=== PATIENT | male | born 1955 | race Caucasian/White ===

== ENCOUNTER 2023-12-25 16:34 | Inpatient (IN) | payer OTHER, SELFPAY ==
[2023-12-25] VITALS (7 sets, daily range): BP systolic 104–143; BP diastolic 63–78; PULSE 74–87; TEMP 36.6–36.8; O2SAT 96–100; BMI 51.4; BMI 52.8
--- NOTE | 2023-12-25 16:54 | ED.GENADUL1 ---
HPI HPI - General Adult General Chief complaint: Skin/Abscess/Foreign Body Stated complaint: LOWER EXTREMITY INJURY/PAIN Time Seen by Provider: 12/25/23 16:38 Source: patient Mode of arrival: Wheelchair Limitations: no limitations History of Present Illness HPI narrative: 68-year-old male presents for redness and swelling to his right lower leg. It goes from the knee to the ankle. He saw his doctor and over a week ago he had an ultrasound that did not show DVT. 2 days ago he was put on Xarelto and doxycycline by his family doctor but the redness continues and it is warm to touch and he is worried about an infection and it seems to be getting worse. He has not had a known fever. His highest temperature at home was 99 degrees. Related Data Home Medications ?Medication ?Instructions ?Recorded ?Confirmed aspirin 81 mg capsule 81 mg PO DAILY 12/25/23 12/25/23 atorvastatin 40 mg tablet (Lipitor) 40 mg PO DAILY 12/25/23 12/25/23 celecoxib 200 mg capsule (Celebrex) 200 mg PO DAILY 12/25/23 12/25/23 cholecalciferol (vitamin D3) 1,250 1,250 mcg PO QWEEK 12/25/23 12/25/23 mcg (50,000 unit) capsule doxycycline monohydrate 100 mg 100 mg PO DAILY 12/25/23 12/25/23 capsule metformin 500 mg tablet 500 mg PO BID 12/25/23 12/25/23 rifaximin 550 mg tablet (Xifaxan) 550 mg PO BID 12/25/23 12/25/23 rivaroxaban 20 mg tablet (Xarelto) 20 mg PO DAILY 12/25/23 12/25/23 sacubitril 24 mg-valsartan 26 mg 1 tab PO BID 12/25/23 12/25/23 tablet (Entresto) vericiguat 2.5 mg tablet (Verquvo) 2.5 mg PO DAILY 12/25/23 12/25/23 Allergies Allergy/AdvReac Type Severity Reaction Status Date / Time No Known Drug Allergies Allergy Verified 12/25/23 16:43 Opioid HPI Opioid Management Most Recent Opioid Data: Last Pain Scale 7 12/25/23 17:20 Last ED Pain Assessment 12/25/23 17:04 Last MAR Pain Assessment 12/25/23 17:20 Review of Systems ROS Narrative A ten point review of systems is negative except as noted above. Exam Narrative Exam Narrative: Nurses note and vital signs reviewed and patient is not hypoxic. General: The patient appears well and in no apparent distress. Patient is resting comfortably on cart. Skin: Warm, dry, no pallor noted. There is no rash noted. Head: Normocephalic, atraumatic Eye: Normal conjunctiva, no drainage Ears, Nose, Mouth, and Throat: oral mucosa is moist. Nares patent. Cardiovascular: Regular Rate and Rhythm Respiratory: Patient is in no distress, no accessory muscle use, lungs are clear to auscultation, no wheezing, rales or rhonchi Back: non-tender GI: Soft and nontender Musculoskeletal: He has significant erythema and swelling of the right lower leg from the knee down to the ankle. Neurological: A&O, normal speech Psychiatric: Cooperative Constitutional Vital Signs, click to edit/add: Last Vital Signs Temp 98.2 F 12/25/23 16:38 Pulse 85 12/25/23 16:38 Resp 18 12/25/23 16:38 BP 132/78 12/25/23 16:38 Pulse Ox 100 12/25/23 16:38 O2 Del Method Room Air 12/25/23 16:38 Course Vital Signs Vital signs: Vital Signs Temperature 98.2 F 12/25/23 16:38 Pulse Rate 85 12/25/23 16:38 Respiratory Rate 18 12/25/23 16:38 Blood Pressure 132/78 12/25/23 16:38 Pulse Oximetry 100 12/25/23 16:38 Oxygen Delivery Method Room Air 12/25/23 16:38 Temperature 98.2 F 12/25/23 16:38 Pulse Rate 85 12/25/23 16:38 Respiratory Rate 12/25/23 16:38 Blood Pressure 132/78 12/25/23 16:38 Pulse Oximetry 100 12/25/23 16:38 Oxygen Delivery Method Room Air 12/25/23 16:38 Medical Decision Making MDM Narrative Medical decision making narrative: My clinical impression is that he has cellulitis. He had a recent ultrasound of his leg and is already on Xarelto. Cultures were obtained and he was given IV vancomycin and is being admitted. Findings are discussed with the patient and his . Differential Diagnosis Differential Diagnosis: Cellulitis, DVT Lab Data Lab results reviewed: Yes I reviewed the patient's lab results Labs: Lab Results 12/25/23 Range/Units 16:53 WBC 7.9 (4.0-11.0) 10^3/uL RBC 4.31 L (4.70-6.10) 10^6/uL Hgb 14.8 (14.0-18.0) g/dL Hct 43.4 (42.0-54.0) % MCV 100.7 H (80.0-94.0) fL MCH 34.3 H (25.9-34.0) pg MCHC 34.1 (29.9-35.2) g/dL RDW 14.8 (11.0-15.0) % Plt Count 150 (150-450) 10^3/uL MPV 12.6 (9.5-13.5) fL Neut % (Auto) 62.1 (43.0-75.0) % Lymph % (Auto) 15.1 L (20.5-60.0) % [place] % (Auto) 17.9 H (1.7-12.0) % Eos % (Auto) 1.6 (0.9-7.0) % Baso % (Auto) 0.9 (0.2-2.0) % Neut # (Auto) 4.9 (1.4-6.5) 10^3/uL Lymph # (Auto) 1.2 (1.2-3.8) 10^3/uL [place] # (Auto) 1.4 H (0.3-0.8) 10^3/uL Eos # (Auto) 0.1 (0.0-0.7) 10^3/uL Baso # (Auto) 0.1 (0.0-0.1) 10^3/uL Abs Immat Gran (auto) 0.19 H (0.00-0.03) 10^3/uL Imm/Tot Granulo (auto) 2.4 H (0.0-0.5) % Sodium 135 L (136-145) mmol/L Potassium 3.9 (3.5-5.1) mmol/L Chloride 99 (98-107) mmol/L Carbon Dioxide 25.6 (21.0-32.0) mmol/L Anion Gap 14.3 BUN 33.0 H (7.0-18.0) mg/dL Creatinine 1.80 H (0.70-1.30) mg/dL Est GFR ( Amer) 45 L (>=60) Est GFR (Non-Af Amer) 37 L (>=60) BUN/Creatinine Ratio 18.3 Glucose 88 (74-106) mg/dL Lactate 3.1 H* (0.4-2.0) mmol/L Calcium 8.7 (8.5-10.1) mg/dL Discharge Plan Discharge Chief Complaint: Skin/Abscess/Foreign Body Clinical Impression: Cellulitis Patient Disposition: Admitted As Inpatient Time of Disposition Decision: 17:27 Condition: Good
[2023-12-25 17:01] LABS: Basophils Absolute Auto 0.1 10^3/uL (0.0-0.1); Basophils Percent Auto 0.9 % (0.2-2.0); Eosinophils Absolute Auto 0.1 10^3/uL (0.0-0.7); Eosinophils Percent Auto 1.6 % (0.9-7.0); Hematocrit 43.4 % (42.0-54.0); Hemoglobin 14.8 g/dL (14.0-18.0); Immature Granulocytes Abs Auto 0.19 10^3/uL (0.00-0.03); Immature Granulocytes Pct Auto 2.4 % (0.0-0.5); Lymphocytes Absolute Auto 1.2 10^3/uL (1.2-3.8); Lymphocytes Percent Auto 15.1 % (20.5-60.0); Mean Corpuscular HGB Conc 34.1 g/dL (29.9-35.2); Mean Corpuscular Hemoglobin 34.3 pg (25.9-34.0); Mean Corpuscular Volume 100.7 fL (80.0-94.0); Mean Platelet Volume 12.6 fL (9.5-13.5); Monocytes Absolute Auto 1.4 10^3/uL (0.3-0.8); Monocytes Percent Auto 17.9 % (1.7-12.0); Neutrophils Absolute Auto 4.9 10^3/uL (1.4-6.5); Neutrophils Percent Auto 62.1 % (43.0-75.0); Platelet Count 150 10^3/uL (150-450); Red Blood Count 4.31 10^6/uL (4.70-6.10); Red Cell Distribution Width 14.8 % (11.0-15.0); White Blood Count 7.9 10^3/uL (4.0-11.0)
[2023-12-25 17:11] LABS: Anion Gap 14.3; BUN Creatinine Ratio 18.3; Calcium 8.7 mg/dL (8.5-10.1); Carbon Dioxide 25.6 mmol/L (21.0-32.0); Chloride 99 mmol/L (98-107); Estimated GFR (African America 45 (>=60); Estimated GFR (Non-African Ame 37 (>=60); Glucose 88 mg/dL (74-106); Potassium 3.9 mmol/L (3.5-5.1); Sodium 135 mmol/L (136-145)
[2023-12-25] MEDS: MORPHINE SULFATE 4 MG/ML VIAL IV (17:20)
[2023-12-25 17:22] LABS: Lactate/Lactic Acid 3.1 mmol/L (0.4-2.0)
[2023-12-25] MEDS: VANCOMYCIN HCL 2,000 MG in 0.9 % SODIUM CHLORIDE 500 ML 250 MG IV (17:56)
[2023-12-25] MEDS: MORPHINE SULFATE 2 MG/ML SYRINGE IV (22:43)
[2023-12-26 04:45] VITALS: O2SAT 93
[2023-12-26 05:52] VITALS: BP 99/58; PULSE 70; TEMP 36.6
[2023-12-26] MEDS: OXYCODONE HCL 5 MG TABLET PO ×3 (06:41→20:19)
[2023-12-26 07:23] LABS: Glucometer 89 mg/dL (74-106)
[2023-12-26 08:08] LABS: Basophils Absolute Auto 0.1 10^3/uL (0.0-0.1); Basophils Percent Auto 0.8 % (0.2-2.0); Eosinophils Absolute Auto 0.2 10^3/uL (0.0-0.7); Eosinophils Percent Auto 2.4 % (0.9-7.0); Hematocrit 40.2 % (42.0-54.0); Hemoglobin 13.3 g/dL (14.0-18.0); Immature Granulocytes Abs Auto 0.09 10^3/uL (0.00-0.03); Immature Granulocytes Pct Auto 1.4 % (0.0-0.5); Lymphocytes Absolute Auto 1.1 10^3/uL (1.2-3.8); Lymphocytes Percent Auto 16.8 % (20.5-60.0); Mean Corpuscular HGB Conc 33.1 g/dL (29.9-35.2); Mean Corpuscular Hemoglobin 33.9 pg (25.9-34.0); Mean Corpuscular Volume 102.6 fL (80.0-94.0); Mean Platelet Volume 12.2 fL (9.5-13.5); Monocytes Absolute Auto 0.9 10^3/uL (0.3-0.8); Monocytes Percent Auto 13.8 % (1.7-12.0); Neutrophils Absolute Auto 4.3 10^3/uL (1.4-6.5); Neutrophils Percent Auto 64.8 % (43.0-75.0); Platelet Count 125 10^3/uL (150-450); Red Blood Count 3.92 10^6/uL (4.70-6.10); Red Cell Distribution Width 15.1 % (11.0-15.0); White Blood Count 6.7 10^3/uL (4.0-11.0)
[2023-12-26 08:28] LABS: Alanine Aminotransferase 26 U/L (16-63); Albumin Globulin Ratio 0.5; Albumin Level 2.1 g/dL (3.4-5.0); Alkaline Phosphatase 146 U/L (46-116); Anion Gap 12.2; Aspartate Amino Transferase 52 U/L (15-37); BUN Creatinine Ratio 21.7; Calcium 8.1 mg/dL (8.5-10.1); Carbon Dioxide 23.9 mmol/L (21.0-32.0); Chloride 101 mmol/L (98-107); Estimated GFR (African America 59 (>=60); Estimated GFR (Non-African Ame 49 (>=60); Glucose 86 mg/dL (74-106); Potassium 4.1 mmol/L (3.5-5.1); Sodium 133 mmol/L (136-145); Total Protein 6.1 g/dL (6.4-8.2)
[2023-12-26] MEDS: RIVAROXABAN 10 MG TABLET 20 MG PO (08:30)
[2023-12-26] MEDS: ASPIRIN 81 MG TABLET.DR PO (08:32)
[2023-12-26] MEDS: 0.9 % SODIUM CHLORIDE 250 ML 10 ML IV (10:39)
[2023-12-26] MEDS: FUROSEMIDE 40 MG/4 ML VIAL IVP (10:39)
[2023-12-26] MEDS: PIPERACILLIN SODIUM/TAZOBACTAM 3.375 GM in 0.9 % SODIUM CHLORIDE 50 ML IV ×2 (11:10→20:19)
--- NOTE | 2023-12-26 11:11 | P.HP_ITS ---
HPI H&P: HPI History of Present Illness Chief complaint: RIGHT LEG CELLULITIS Narrative: 68-year-old male, very poor historian and poor insight into his medical history presented to ER last evening with right lower extremity swelling/pain/erythema extending from ankle all the way up to his knees. He reports fever/chills that started about a week ago on Wednesday and he started to notice that his right lower extremity is painful/tender and swelling up. He saw his primary care physician on the who prescribed him oral doxycycline for right lower extremity cellulitis He had an in office ultrasound that showed right lower extremity DVT for which she was a started on Xarelto. Patient reports compliance with his medications, however he continued to have progressive swelling/pain and erythema involving his right lower extremity for which he came to ED for further evaluation. Patient told the ER physician that he did not have a DVT on an ultrasound. He is also unaware of his baseline renal function. I had a phone conversation with his primary care physician who told me about the DVT and baseline renal function. Patient was a started on IV vancomycin and we continued his oral Xarelto. I saw him earlier today and seems to have significant +3 right lower extremity edema with induration/tenderness that has actually worsened overnight while on IV vancomycin. He was originally admitted as observation but I am changing him to inpatient considering that he has failed outpatient therapy, he is worsening and not responding to IV antibiotic therapy for which I broaden his coverage and added IV Zosyn. He also seems to have mild volume overload for which I started him on IV Lasix. Change Xarelto to therapeutic dose of Eliquis and ordered an ultrasound to assess his RLE DVT. Opioid HPI Opioid Management Most Recent Pain and Opioid Data: Last Pain Scale 4 12/26/23 08:28 Last Pain Assessment 12/26/23 10:49 Last ED Pain Assessment 12/25/23 17:04 Last MAR Pain Assessment 12/26/23 08:28 Last ORT Total Score 0 12/25/23 18:38 Last ORT Risk Category Low Risk 12/25/23 18:38 Review of Systems ROS Status of ROS 10 or more systems reviewed and unremark able except as noted in history and below [facility] Medical History (Updated 12/26/23 @ 11:24 by Shaikh Miguel MD) HLD (hyperlipidemia) ?E78.5 - Hyperlipidemia, unspecified (ICD-10) Morbid obesity ?E66.01 - Morbid (severe) obesity due to excess calories (ICD-10) CONSTANCE (obstructive sleep apnea) ?G47.33 - Obstructive sleep apnea (adult) (pediatric) (ICD-10) HTN (hypertension) ?I10 - Essential (primary) hypertension (ICD-10) Type 2 diabetes mellitus ?E11.9 - Type 2 diabetes mellitus without complications (ICD-10) HFrEF (heart failure with reduced ejection fraction) ?I50.20 - Unspecified systolic (congestive) heart failure (ICD-10) CKD (chronic kidney disease) stage 3, GFR 30-59 ml/min ?N18.30 - Chronic kidney disease, stage 3 unspecified (ICD-10) Social History (Updated 12/25/23 @ 18:54 by Kelsy Seals) Within the past year, how often did you have a drink containing alcohol: never Score interpretation: A score less than 4 is consistent with normal alcohol consumption. Smoking status: Never smoker Non-prescribed substance use: denies use Previous occupational history: retired Highest level of school completed/degree received: high school graduate Are you now , , , , never or living with a partner: Little interest or pleasure in doing things: not at all Feeling down, depressed, or hopeless: not at all Feel stressed/tense/nervous/anxious/difficulty sleeping: not at all Meds Home Medications and Allergies Home Medications ?Medication ?Instructions ?Recorded ?Confirmed ?Type aspirin 81 mg capsule 81 mg PO DAILY 12/25/23 12/25/23 History atorvastatin 40 mg tablet (Lipitor) 40 mg PO BEDTIME 12/25/23 12/26/23 History celecoxib 200 mg capsule (Celebrex) 200 mg PO DAILY 12/25/23 12/25/23 History cholecalciferol (vitamin D3) 1,250 1,250 mcg PO QWEEK 12/25/23 12/25/23 History mcg (50,000 unit) capsule doxycycline monohydrate 100 mg 100 mg PO Q12H 12/25/23 12/26/23 History capsule metformin 500 mg tablet 500 mg PO BIDWM 12/25/23 12/26/23 History rifaximin 550 mg tablet (Xifaxan) 550 mg PO BID 12/25/23 12/25/23 History rivaroxaban 20 mg tablet (Xarelto) 20 mg PO DAILY 12/25/23 12/25/23 History sacubitril 24 mg-valsartan 26 mg 1 tab PO BID 12/25/23 12/25/23 History tablet (Entresto) vericiguat 2.5 mg tablet (Verquvo) 2.5 mg PO DAILY 12/25/23 12/25/23 History duloxetine 60 mg capsule,delayed 60 mg PO DAILY 12/26/23 12/26/23 History release Allergies Allergy/AdvReac Type Severity Reaction Status Date / Time No Known Drug Allergies Allergy Verified 12/25/23 16:43 Exam Constitutional Vital Signs, click to edit/add: Last Vital Signs Temp 98 F 12/26/23 05:52 Pulse 70 12/26/23 05:52 Resp 18 12/25/23 23:56 BP 99/58 12/26/23 05:52 Pulse Ox 93 L 12/26/23 04:45 O2 Del Method Room Air 12/26/23 04:45 Documenting provider has reviewed patient's vital signs: yes Common normals: oriented x3 General appearance: cooperative and in distress mild Nutritional appearance: obese HENAK Common normals: normocephalic and head/scalp atraumatic Respiratory Common normals: normal respiratory effort and clear to auscultation bilaterally Effort & inspection: able to speak in complete sentences and decreased respiratory effort Cardio Common normals: regular rate, regular rhythm, S1 normal heart sound and S2 normal heart sound GI Common normals: Normal to inspection, nondistended, normoactive bowel sounds present, soft to palpation, non-tender and no hepatosplenomegaly Extremity Other: Right LE -+3 edema, significantly indurated skin/erythema with tenderness extending from foot to just below knee. Neuro Common normals: oriented x3, moves all extremities, no focal motor deficits and no sensory deficits noted Psych Common normals: mental status grossly normal, thought process normal, denies homicidal ideation and denies suicidal ideation Results Labs Labs: Short CBC 12/25/23 12/26/23 Range/Units 16:53 08:00 WBC 7.9 6.7 (4.0-11.0) 10^3/uL Hgb 14.8 13.3 L (14.0-18.0) g/dL Hct 43.4 40.2 L (42.0-54.0) % Plt Count 150 125 L (150-450) 10^3/uL BMP 12/25/23 12/26/23 16:53 08:00 Sodium 135 L 133 L Potassium 3.9 4.1 Chloride 99 101 Carbon Dioxide 25.6 23.9 BUN 33.0 H 31.0 H Creatinine 1.80 H 1.43 H Glucose 88 86 Calcium 8.7 8.1 L Liver Function 12/26/23 Range/Units 08:00 Total Bilirubin 3.0 H (0.2-1.0) mg/dL AST 52 H (15-37) U/L ALT 26 (16-63) U/L Alkaline Phosphatase 146 H (46-116) U/L Albumin 2.1 L (3.4-5.0) g/dL Assessment and Plan Assessment and Plan (1) Acute deep vein thrombosis of right lower extremity: Assessment and Plan: Started on therapeutic dose of Eliquis. Order US. No evidence of vascular compromise. Qualifiers: Affected thrombotic vein of extremity: unspecified vein of extremity Qualified Code(s): I82.401 - Acute embolism and thrombosis of unspecified deep veins of right lower extremity (2) Cellulitis: Assessment and Plan: Severe/worsening extending form foot to just below knee. Add zosyn as worsened while on Vancomycin. Leg elevation, monitor and f/u closely. F.u blood cx. Qualifiers: Site of cellulitis: extremity Site of cellulitis of extremity: lower extremity Laterality: right Qualified Code(s): L03.115 - Cellulitis of right lower limb (3) MYLES (acute kidney injury): Assessment and Plan: Improved, likely cardiorenal. baseline cr is 1.3-1.5. Monitor closely while on abx. (4) Acute on chronic systolic (congestive) heart failure: Assessment and Plan: Volume overload on exam, start on IV lasix. (5) Type 2 diabetes mellitus: Assessment and Plan: SSI while inpatient. uses metformin as outpatient. Qualifiers: Diabetes mellitus skilled nursing insulin use: without certified optician use Diabetes mellitus complication status: with kidney complications Diabetes mellitus compl ication detail: with chronic kidney disease Chronic kidney disease stage: stage 3 (moderate) Chronic kidney disease stage 3 subtype: stage 3a (GFR 45-59) Qualified Code(s): E11.22 - Type 2 diabetes mellitus with diabetic chronic kidney disease; N18.31 - Chronic kidney disease, stage 3a (6) HTN (hypertension): Assessment and Plan: Stable BP. cw home medications Qualifiers: Hypertension type: primary hypertension Qualified Code(s): I10 - Essential (primary) hypertension (7) CONSTANCE (obstructive sleep apnea): Assessment and Plan: CPAP at night/or during daytime if sleeping. (8) Morbid obesity: Assessment and Plan: Will benefit from weight losss. defer to pcp (9) CKD (chronic kidney disease) stage 3, GFR 30-59 ml/min: Assessment and Plan: due to CHF, T2 DM, renal function improved, back to baseline. Qualifiers: Chronic kidney disease stage 3 subtype: stage 3a (GFR 45-59) Qualified Code(s): N18.31 - Chronic kidney disease, stage 3a (10) HLD (hyperlipidemia): Assessment and Plan: c/w statin Qualifiers: Hyperlipidemia type: unspecified Qualified Code(s): E78.5 - Hyperlipidemia, unspecified Plan Added zosyn. F/u blood cx, US of RLE. Changed to inpatient as failed outpatient abx, failed initial IV abx therapy, also has concomitant acute RLE DVT, acute on chronic systolic HF, contributing to the complexity to his medical care/level of care, and at high risk of poor outcome/relapse. Anticipate needing inpatient treatment/monitoring over 2 midnight given his hx, clinical presentation.
[2023-12-26 11:26] LABS: Glucometer 97 mg/dL (74-106)
[2023-12-26] MEDS: ACETAMINOPHEN 325 MG TABLET 650 MG PO (12:20)
[2023-12-26 13:40] VITALS: BP 122/74; PULSE 73; TEMP 37.2; O2SAT 96
[2023-12-26 15:20] VITALS: BP 122/74; PULSE 73; TEMP 37.2; O2SAT 96
[2023-12-26 16:05] LABS: Glucometer 95 mg/dL (74-106)
[2023-12-26] MEDS: VANCOMYCIN HCL 1,500 MG in 0.9 % SODIUM CHLORIDE 500 ML 250 MG IV (17:43)
[2023-12-26 19:44] LABS: Glucometer 150 mg/dL (74-106)
[2023-12-26 19:47] VITALS: BP 111/57; PULSE 65; TEMP 36.6; O2SAT 96
[2023-12-26] MEDS: SACUBITRIL/VALSARTAN 24 MG-26 MG TABLET 1 TAB PO (20:19)
[2023-12-26] MEDS: APIXABAN 5 MG TABLET 10 MG PO (20:19)
[2023-12-26 20:24] VITALS: O2SAT 98
[2023-12-26] MEDS: ATORVASTATIN CALCIUM 40 MG TABLET PO (21:45)
[2023-12-26] MEDS: INSULIN ASPART 300 UNIT/3 ML PEN SUBQ (21:48)
[2023-12-27] VITALS (8 sets, daily range): BP systolic 92–128; BP diastolic 55–71; PULSE 67–78; TEMP 36.6; O2SAT 93–100
[2023-12-27] MEDS: OXYCODONE HCL 5 MG TABLET PO ×2 (02:56→16:58)
[2023-12-27] MEDS: PIPERACILLIN SODIUM/TAZOBACTAM 3.375 GM in 0.9 % SODIUM CHLORIDE 50 ML IV ×3 (04:47→20:03)
[2023-12-27 04:49] LABS: Basophils Absolute Auto 0.1 10^3/uL (0.0-0.1); Eosinophils Absolute Auto 0.2 10^3/uL (0.0-0.7); Eosinophils Percent Auto 2.4 % (0.9-7.0); Hematocrit 39.3 % (42.0-54.0); Hemoglobin 13.3 g/dL (14.0-18.0); Immature Granulocytes Abs Auto 0.11 10^3/uL (0.00-0.03); Immature Granulocytes Pct Auto 1.4 % (0.0-0.5); Lymphocytes Absolute Auto 1.2 10^3/uL (1.2-3.8); Lymphocytes Percent Auto 15.4 % (20.5-60.0); Mean Corpuscular HGB Conc 33.8 g/dL (29.9-35.2); Mean Corpuscular Hemoglobin 34.1 pg (25.9-34.0); Mean Corpuscular Volume 100.8 fL (80.0-94.0); Mean Platelet Volume 12.1 fL (9.5-13.5); Monocytes Absolute Auto 0.8 10^3/uL (0.3-0.8); Monocytes Percent Auto 10.4 % (1.7-12.0); Neutrophils Absolute Auto 5.6 10^3/uL (1.4-6.5); Neutrophils Percent Auto 69.4 % (43.0-75.0); Platelet Count 143 10^3/uL (150-450); Red Cell Distribution Width 14.8 % (11.0-15.0)
[2023-12-27 05:12] LABS: Alanine Aminotransferase 27 U/L (16-63); Albumin Globulin Ratio 0.5; Albumin Level 2.1 g/dL (3.4-5.0); Alkaline Phosphatase 172 U/L (46-116); Aspartate Amino Transferase 51 U/L (15-37); BUN Creatinine Ratio 18.3; Bilirubin Total 2.7 mg/dL (0.2-1.0); Calcium 8.3 mg/dL (8.5-10.1); Carbon Dioxide 23.1 mmol/L (21.0-32.0); Chloride 99 mmol/L (98-107); Estimated GFR (African America 49 (>=60); Estimated GFR (Non-African Ame 40 (>=60); Globulin 4.2 g/dL; Glucose 85 mg/dL (74-106); Potassium 4.1 mmol/L (3.5-5.1); Sodium 131 mmol/L (136-145); Total Protein 6.3 g/dL (6.4-8.2)
[2023-12-27] MEDS: DULOXETINE HCL 60 MG CAPSULE.DR PO (08:36)
[2023-12-27] MEDS: APIXABAN 5 MG TABLET 10 MG PO (08:36)
[2023-12-27] MEDS: ASPIRIN 81 MG TABLET.DR PO (08:36)
[2023-12-27] MEDS: SACUBITRIL/VALSARTAN 24 MG-26 MG TABLET 1 TAB PO (08:37)
[2023-12-27] MEDS: MORPHINE SULFATE 2 MG/ML SYRINGE IV (08:37)
[2023-12-27] MEDS: ERGOCALCIFEROL (VITAMIN D2) 1,250 MCG/50,000 UNITS CAPSULE 1250 MCG PO (08:49)
--- NOTE | 2023-12-27 09:00 | US_ITS ---
The [address] [address] Patient Name: CARA CERVANTES MRN: [id number] date: 1955 Sex: M Assigned Patient Location: [place] Current Patient Location: [place] Accession/Order Number: [id number] Exam Date: 12/27/2023 09:05 Report Date: 12/27/2023 10:10 At the request of: SHAIKH RESHMA Procedure: US venous doppler LE RT EXAM: US venous doppler LE RT HISTORY: Deep venous thrombosis COMPARISON: None TECHNIQUE: Utilizing color-flow duplex scanning and Doppler flow analysis, deep venous system was evaluated. FINDINGS: There is normal compressibility seen throughout the visualized deep venous system. There is gross patency identified. Augmentation is seen. No evidence of focal area of increased echogenicity within the deep venous system to suggest thrombosis. Infrapopliteal evaluation is somewhat limited with the entirety of the deep venous system of the infrapopliteal region not evaluated due to patient request to terminate the exam per given history. Greater saphenous vein and lesser saphenous vein of the superficial venous system appear unremarkable. Soft tissue edema noted. Finding compatible with mildly enlarged lymph node in the right inguinal region measuring 4.5 x 2.2 x 1.2 cm, likely reactive. US/US venous doppler LE RT IMPRESSION: Grossly unremarkable imaging study of the visualized deep venous system of the right leg as described, no definite evidence of deep venous thrombosis can be identified. Electronically authenticated by: MARIANN BOONE Date: 12/27/2023 10:10
--- NOTE | 2023-12-27 11:03 | P.IMPN_ITS ---
Progress Note: A&P Assessment and Plan (1) Cellulitis: Assessment and Plan: RLE cellulitis, no improvement noted. C/w IV vanco/zosyn F/u cultures. Qualifiers: Laterality: right Site of cellulitis: extremity Site of cellulitis of extremity: lower extremity Qualified Code(s): L03.115 - Cellulitis of right lower limb (2) Acute deep vein thrombosis of right lower extremity: Assessment and Plan: I was told by patients PCP that he had DVT on US exam performed in office but upon rechecking his records, he informed me that this was not the case and he started pt on Xarelto as a precautionary measure. I had started patient on Eliquis therapeutic dose, will d/c Eliquis. US this morning - no evidence of DVT. Qualifiers: Affected thrombotic vein of extremity: unspecified vein of extremity Qualified Code(s): I82.401 - Acute embolism and thrombosis of unspecified deep veins of right lower extremity (3) MYLES (acute kidney injury): Assessment and Plan: At baseline, more or less. (4) Acute on chronic systolic (congestive) heart failure: Assessment and Plan: More or less euvolemic. No need for lasix. I will also d/c entresto as according to his PCP, he has not tolerated it as outpatient. (5) Type 2 diabetes mellitus: Assessment and Plan: SSI while inpatient. 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 Monitor. Qualifiers: Hypertension type: primary hypertension Qualified Code(s): I10 - Essential (primary) hypertension (7) CONSTANCE (obstructive sleep apnea): Assessment and Plan: Cw/ CPAP (8) Morbid obesity: Assessment and Plan: Weight loss indicated. (9) CKD (chronic kidney disease) stage 3, GFR 30-59 ml/min: Assessment and Plan: Cr more or less at baseline Qualifiers: Chronic kidney disease stage 3 subtype: stage 3a (GFR 45-59) Qualified Code(s): N18.31 - Chronic kidney disease, stage 3a (10) HLD (hyperlipidemia): Assessment and Plan: Cw statin Qualifiers: Hyperlipidemia type: unspecified Qualified Code(s): E78.5 - Hyperlipidemia, unspecified Plan No improvement, still has sig pain/erythema. Needs continued inpatient treatment with IV abx. Internal Medicine - PN: Subj Subjective Interval history: Seen and examined. No overnight events. Still has sig pain/swelling and erythema of RLE. No fever/chills. Exam Constitutional Vital Signs, click to edit/add: Last Vital Signs Temp 97.9 F 12/27/23 02:56 Pulse 78 12/27/23 02:56 Resp 18 12/27/23 02:56 BP 118/71 12/27/23 02:56 Pulse Ox 94 L 12/27/23 09:52 O2 Del Method Room Air 12/27/23 02:56 Documenting provider has reviewed patient's vital signs: yes Common normals: oriented x3 General appearance: cooperative and in distress mild Nutritional appearance: obese Respiratory Common normals: normal respiratory effort and clear to auscultation bilaterally Effort & inspection: able to speak in complete sentences and decreased respiratory effort Cardio Common normals: regular rate, regular rhythm, S1 normal heart sound and S2 normal heart sound Extremity Other: Right LE --->+2 edema, significantly indurated skin/erythema with tenderness extending from foot to just below knee. Neuro Common normals: oriented x3, moves all extremities, no focal motor deficits and no sensory deficits noted Psych Common normals: mental status grossly normal, thought process normal, denies homicidal ideation and denies suicidal ideation Internal Medicine - PN: Obj Da Labs Labs: Laboratory Results - last 24 hr 12/26/23 12/26/23 12/26/23 11:25 16:04 19:43 WBC RBC Hgb Hct MCV MCH MCHC RDW Plt Count MPV Neut % (Auto) Lymph % (Auto) [place] % (Auto) Eos % (Auto) Baso % (Auto) Neut # (Auto) Lymph # (Auto) [place] # (Auto) Eos # (Auto) Baso # (Auto) Abs Immat Gran (auto) Imm/Tot Granulo (auto) Sodium Potassium Chloride Carbon Dioxide Anion Gap BUN Creatinine Est GFR ( Amer) Est GFR (Non-Af Amer) BUN/Creatinine Ratio Glucose Calcium Total Bilirubin AST ALT Alkaline Phosphatase Total Protein Albumin Globulin Albumin/Globulin Ratio POC Glucose 97 95 150 H 12/27/23 04:30 WBC 8.0 RBC 3.90 L Hgb 13.3 L Hct 39.3 L MCV 100.8 H MCH 34.1 H MCHC 33.8 RDW 14.8 Plt Count 143 L MPV 12.1 Neut % (Auto) 69.4 Lymph % (Auto) 15.4 L [place] % (Auto) 10.4 Eos % (Auto) 2.4 Baso % (Auto) 1.0 Neut # (Auto) 5.6 Lymph # (Auto) 1.2 [place] # (Auto) 0.8 Eos # (Auto) 0.2 Baso # (Auto) 0.1 Abs Immat Gran (auto) 0.11 H Imm/Tot Granulo (auto) 1.4 H Sodium 131 L Potassium 4.1 Chloride 99 Carbon Dioxide 23.1 Anion Gap 13.0 BUN 31.0 H Creatinine 1.69 H Est GFR ( Amer) 49 L Est GFR (Non-Af Amer) 40 L BUN/Creatinine Ratio 18.3 Glucose 85 Calcium 8.3 L Total Bilirubin 2.7 H AST 51 H ALT 27 Alkaline Phosphatase 172 H Total Protein 6.3 L Albumin 2.1 L Globulin 4.2 Albumin/Globulin Ratio 0.5 POC Glucose
[2023-12-27 12:22] LABS: Glucometer 127 mg/dL (74-106)
--- NOTE | 2023-12-27 12:27 | CM.NOTE ---
Rounds made with Dr. Rivera. Discussed plan of care and need for continued IV antibiotics. No plan for discharge today.
[2023-12-27 17:01] LABS: Glucometer 155 mg/dL (74-106)
[2023-12-27] MEDS: VANCOMYCIN HCL 1,500 MG in 0.9 % SODIUM CHLORIDE 500 ML 250 MG IV (17:54)
[2023-12-27] MEDS: ATORVASTATIN CALCIUM 40 MG TABLET PO (21:10)
[2023-12-27 21:11] LABS: Glucometer 115 mg/dL (74-106)
[2023-12-28] MEDS: PIPERACILLIN SODIUM/TAZOBACTAM 3.375 GM in 0.9 % SODIUM CHLORIDE 50 ML IV ×3 (04:27→21:20)
[2023-12-28 04:30] VITALS: BP 102/57; PULSE 68; TEMP 36.6; O2SAT 96
[2023-12-28 04:51] LABS: Basophils Absolute Auto 0.1 10^3/uL (0.0-0.1); Basophils Percent Auto 0.6 % (0.2-2.0); Eosinophils Absolute Auto 0.2 10^3/uL (0.0-0.7); Eosinophils Percent Auto 1.7 % (0.9-7.0); Hematocrit 39.1 % (42.0-54.0); Immature Granulocytes Pct Auto 1.1 % (0.0-0.5); Lymphocytes Percent Auto 10.8 % (20.5-60.0); Mean Corpuscular HGB Conc 33.2 g/dL (29.9-35.2); Mean Corpuscular Hemoglobin 33.7 pg (25.9-34.0); Mean Corpuscular Volume 101.3 fL (80.0-94.0); Mean Platelet Volume 11.7 fL (9.5-13.5); Monocytes Absolute Auto 0.8 10^3/uL (0.3-0.8); Neutrophils Absolute Auto 7.1 10^3/uL (1.4-6.5); Neutrophils Percent Auto 76.8 % (43.0-75.0); Platelet Count 177 10^3/uL (150-450); Red Blood Count 3.86 10^6/uL (4.70-6.10); Red Cell Distribution Width 14.7 % (11.0-15.0); White Blood Count 9.3 10^3/uL (4.0-11.0)
[2023-12-28 05:23] LABS: Alanine Aminotransferase 30 U/L (16-63); Albumin Globulin Ratio 0.5; Albumin Level 2.2 g/dL (3.4-5.0); Alkaline Phosphatase 162 U/L (46-116); Anion Gap 13.3; Aspartate Amino Transferase 52 U/L (15-37); BUN Creatinine Ratio 18.2; Bilirubin Total 2.7 mg/dL (0.2-1.0); Calcium 8.1 mg/dL (8.5-10.1); Carbon Dioxide 23.8 mmol/L (21.0-32.0); Chloride 100 mmol/L (98-107); Estimated GFR (African America 52 (>=60); Estimated GFR (Non-African Ame 43 (>=60); Globulin 4.3 g/dL; Glucose 93 mg/dL (74-106); Potassium 4.1 mmol/L (3.5-5.1); Sodium 133 mmol/L (136-145); Total Protein 6.5 g/dL (6.4-8.2)
[2023-12-28 08:00] VITALS: BP 116/64; PULSE 69; TEMP 36.5; O2SAT 97
[2023-12-28] MEDS: ASPIRIN 81 MG TABLET.DR PO (10:11)
[2023-12-28] MEDS: DULOXETINE HCL 60 MG CAPSULE.DR PO (10:12)
[2023-12-28] MEDS: VERICIGUAT 2.5 MG 2.5 EACH PO (10:12)
--- NOTE | 2023-12-28 10:14 | CT_ITS ---
The [address] [address] Patient Name: CARA CERVANTES MRN: [id number] date: 1955 Sex: M Assigned Patient Location: [place] Current Patient Location: [place] Accession/Order Number: [id number] Exam Date: 12/28/2023 10:40 Report Date: 12/28/2023 12:42 At the request of: SHAIKH RESHMA Procedure: CT lower leg RT wo con Exam Type: CT RIGHT LOWER LEG Exam Date and Time: 12/28/2023 10:40 AM EDT Indication: 68 years old Male with right lower leg swelling and redness Comparison: No relevant prior studies in the [place] system for comparison. TECHNIQUE: Axial CT images of the right lower leg were obtained without intravenous contrast. Coronal and sagittal reformatted images were obtained. Dose reduction techniques were achieved by using automated exposure control and/or adjustment of mA and/or kV according to patient size and/or use of iterative reconstruction technique. FINDINGS: No acute displaced fracture is evident. No bony erosive or resorptive changes identified. Achilles enthesophytes are noted. 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 No joint effusion identified. There is diffuse subcutaneous edema and skin thickening about the lower extremity. A discrete drainable fluid collection or abscess is not evident. No deep soft tissue ulceration is evident. No intramuscular edema. No myofascial edema. No intramuscular, myofascial or subcutaneous gas identified to suggest a deep necrotizing infection. CT/CT lower leg RT wo con IMPRESSION: 1. Probable cellulitis without drainable fluid collection, abscess or evidence of a deep necrotizing infection. 2. No acute osseous abnormality. Electronically authenticated by: GEORGIE HINDS Date: 12/28/2023 12:42
--- NOTE | 2023-12-28 10:14 | PM.IMPN1 ---
Progress Note: A&P Assessment and Plan (1) Cellulitis: Assessment and Plan: RLE cellulitis. C/w IV vanco/zosyn F/u cultures. Minimal improvement. order CT LE to r/o deep tissue involvement. Leg elevation Qualifiers: Laterality: right Site of cellulitis: extremity Site of cellulitis of extremity: lower extremity Qualified Code(s): L03.115 - Cellulitis of right lower limb (2) Acute deep vein thrombosis of right lower extremity: Assessment and Plan: Ruled out. No need for anticoagulation Qualifiers: Affected thrombotic vein of extremity: unspecified vein of extremity Qualified Code(s): I82.401 - Acute embolism and thrombosis of unspecified deep veins of right lower extremity (3) MYLES (acute kidney injury): Assessment and Plan: Creatinine more or less at baseline (4) Acute on chronic systolic (congestive) heart failure: Assessment and Plan: More or less euvolemic now. C/w oral lasix. (5) Type 2 diabetes mellitus: Assessment and Plan: SSI while inpatient. Qualifiers: Diabetes mellitus terminal worker insulin use: without terminal worker use Diabetes mellitus complication status: with kidney complications Diabetes mellitus complication detail: with chronic kidney disease Chronic kidney disease stage: stage 3 (moderate) Chronic kidney disease stage 3 subtype: stage 3a (GFR 45-59) Qualified Code(s): E11.22 - Type 2 diabetes mellitus with diabetic chronic kidney disease; N18.31 - Chronic kidney disease, stage 3a (6) HTN (hypertension): Assessment and Plan: Stable. Monitor. Qualifiers: Hypertension type: primary hypertension Qualified Code(s): I10 - Essential (primary) hypertension (7) CONSTANCE (obstructive sleep apnea): Assessment and Plan: Cw/ CPAP (8) Morbid obesity: Assessment and Plan: Weight loss indicated. (9) CKD (chronic kidney disease) stage 3, GFR 30-59 ml/min: Assessment and Plan: Cr more or less at baseline Qualifiers: Chronic kidney disease stage 3 subtype: stage 3a (GFR 45-59) Qualified Code(s): N18.31 - Chronic kidney disease, stage 3a (10) HLD (hyperlipidemia): Assessment and Plan: Cw statin Qualifiers: Hyperlipidemia type: unspecified Qualified Code(s): E78.5 - Hyperlipidemia, unspecified Plan Minimal improvement, on abx, will order CT LE to r/o deeper tissue involvement Internal Medicine - PN: Subj Subjective Interval history: Seen and examined. No overnight events. Continues to have pain/swelling/erythema. Mild improvement. Exam Constitutional Vital Signs, click to edit/add: Last Vital Signs Temp 97.7 F 12/28/23 08:00 Pulse 69 12/28/23 08:00 Resp 14 12/28/23 08:00 BP 116/64 12/28/23 08:00 Pulse Ox 97 12/28/23 08:00 O2 Del Method Room Air 12/28/23 08:00 Documenting provider has reviewed patient's vital signs: yes Common normals: oriented x3 General appearance: cooperative and in distress mild Nutritional appearance: obese Respiratory Common normals: normal respiratory effort and clear to auscultation bilaterally Effort & inspection: able to speak in complete sentences and decreased respiratory effort Cardio Common normals: regular rate, regular rhythm, S1 normal heart sound and S2 normal heart sound Extremity Other: Right LE --->+2 edema, significantly indurated skin/erythema with tenderness extending from foot to just below knee. Internal Medicine - PN: Obj Da Labs Labs: Laboratory Results - last 24 hr 12/27/23 12/27/23 12/27/23 12:21 16:55 21:10 WBC RBC Hgb Hct MCV MCH MCHC RDW Plt Count MPV Neut % (Auto) Lymph % (Auto) [place] % (Auto) Eos % (Auto) Baso % (Auto) Neut # (Auto) Lymph # (Auto) [place] # (Auto) Eos # (Auto) Baso # (Auto) Abs Immat Gran (auto) Imm/Tot Granulo (auto) Sodium Potassium Chloride Carbon Dioxide Anion Gap BUN Creatinine Est GFR ( Amer) Est GFR (Non-Af Amer) BUN/Creatinine Ratio Glucose Calcium Total Bilirubin AST ALT Alkaline Phosphatase Total Protein Albumin Globulin Albumin/Globulin Ratio POC Glucose 127 H 155 H 115 H 12/28/23 04:28 WBC 9.3 RBC 3.86 L Hgb 13.0 L Hct 39.1 L MCV 101.3 H MCH 33.7 MCHC 33.2 RDW 14.7 Plt Count 177 MPV 11.7 Neut % (Auto) 76.8 H Lymph % (Auto) 10.8 L [place] % (Auto) 9.0 Eos % (Auto) 1.7 Baso % (Auto) 0.6 Neut # (Auto) 7.1 H Lymph # (Auto) 1.0 L [place] # (Auto) 0.8 Eos # (Auto) 0.2 Baso # (Auto) 0.1 Abs Immat Gran (auto) 0.10 H Imm/Tot Granulo (auto) 1.1 H Sodium 133 L Potassium 4.1 Chloride 100 Carbon Dioxide 23.8 Anion Gap 13.3 BUN 29.0 H Creatinine 1.59 H Est GFR ( Amer) 52 L Est GFR (Non-Af Amer) 43 L BUN/Creatinine Ratio 18.2 Glucose 93 Calcium 8.1 L Total Bilirubin 2.7 H AST 52 H ALT 30 Alkaline Phosphatase 162 H Total Protein 6.5 Albumin 2.2 L Globulin 4.3 Albumin/Globulin Ratio 0.5 POC Glucose
[2023-12-28 10:16] VITALS: O2SAT 97
--- NOTE | 2023-12-28 10:16 | CM.NOTE ---
Rounds made with Dr. Rivera. Discussed plan of care and need for CT scan of RLE due to little improvement with cellulitis. Javier verbalized understanding. No discharge for today.
--- NOTE | 2023-12-28 10:29 | REH.PTDLY ---
Physical Therapy Daily Note PT Daily Note/Assess Start: 12/27/23 09:02 Freq: Status: Active Protocol: Document 12/28/23 09:28 TARHSA (Rec: 12/28/23 10:29 TARSHA [id number]) Physical Therapy Daily Note/Assessment Time In 09:25 Time Out 09:30
[2023-12-28 11:12] LABS: Glucometer 107 mg/dL (74-106)
[2023-12-28] MEDS: 0.9 % SODIUM CHLORIDE 250 ML 10 ML IV (11:23)
[2023-12-28] MEDS: FUROSEMIDE 20 MG TABLET PO (11:23)
--- NOTE | 2023-12-28 12:27 | SWNOTE1 ---
SW stopped in to speak with pt. Pt voiced he foot/leg was hurting. Nursing came in room, SW to stop back. SW attempted to see pt again, but he had to use restroom. SW checked therapy notes and HH PT was recommended and possible SNF depending on pain. SW to check back with pt later today. Pt did refuse PT and OT today.
--- NOTE | 2023-12-28 12:48 | REH.PTDLY ---
Physical Therapy Daily Note PT Daily Note/Assess Start: 12/27/23 09:02 Freq: Status: Active Protocol: Document 12/28/23 09:28 TARSHA (Rec: 12/28/23 10:29 TARSHA [id number]) Visit Not Completed Visit Not Completed Due to: Pt refusing Other Reason Visit Not Completed Pt just got back into bed and is refusing this morning. Physical Therapy Daily Note/Assessment Time In 09:25 Time Out 09:30
[2023-12-28 14:25] VITALS: BP 117/65; PULSE 70; TEMP 36.6; O2SAT 95
--- NOTE | 2023-12-28 14:36 | REH.PTDLY ---
Physical Therapy Daily Note PT Daily Note/Assess Start: 12/27/23 09:02 Freq: Status: Active Protocol: Document 12/28/23 14:20 BRADLEYENMA (Rec: 12/28/23 14:36 KSTEINRENO [id number]) Physical Therapy Daily Note/Assessment Time In 13:55 Time Out 14:10 Subjective Pt agrees to PT this afternoon , reports pain in R LE is 6/10 Therapeutic Exercise Minutes (minutes) 8 Therapeutic Exercise Units 1 Therapeutic Exercise Treatment Instructed in B LE supine exs 10x ea with pt having more difficulty on R LE but able to perform on his own. R leg is sensitive to the touch. Supine hip abd slides most uncomfortable for pt on R LE. Seated LAQ performed 10x Therapeutic Activity Minutes (minutes) 7 Therapeutic Activity Units 0 Therapeutic Activity Comments Mod A with supine to sit transfer. Sit to stand transfer with pt pulling himself up on RW and therapist holding onto it. Unable to stand with hands pushing off from bed. Once standing pt complains of increased pain in R knee. With several verbal cues pt is able to side step to HOB, taking about 6 steps. CGA with sit to supine transfer, pt is able to perform on own just takes him some time. Total Therapy Minutes 15 Total Physical Therapy Units 1 Daily Note Summary R leg pain is what limits pt. Able to perform exs asked just at slower rate with R LE. If pt continues to do better and able to progress with ambulation, pt should be ok to go home with home health.
--- NOTE | 2023-12-28 15:09 | SWNOTE1 ---
SW stopped back in and spoke with pt. He lives at home with his who is retired. Pt has a walker and cane at home. SW spoke with pt about discharge plans and if he is interested in HH coming into work with him. Pt expresses that his is home all the time and she assist him. SW asked about his pain and getting up and ambulating? Pt voiced he will be fine. Pt does not feel he will need HH at this time. SW advised pt to think about it and SW will check back tomorrow.
[2023-12-28 16:17] LABS: Glucometer 94 mg/dL (74-106)
[2023-12-28 17:46] LABS: Vancomycin Trough 11.8 ug/mL (5.0-20.0)
[2023-12-28] MEDS: VANCOMYCIN HCL 1,500 MG in 0.9 % SODIUM CHLORIDE 500 ML 250 MG IV (18:21)
[2023-12-28 20:28] VITALS: BP 147/71; PULSE 60; TEMP 36.7; O2SAT 96
[2023-12-28 20:47] LABS: Glucometer 101 mg/dL (74-106)
[2023-12-28] MEDS: ATORVASTATIN CALCIUM 40 MG TABLET PO (21:20)
[2023-12-29] VITALS (8 sets, daily range): BP systolic 100–130; BP diastolic 48–74; PULSE 66–75; TEMP 36.4–36.8; O2SAT 93–97
[2023-12-29] MEDS: ACETAMINOPHEN 325 MG TABLET 650 MG PO (01:18)
[2023-12-29] MEDS: OXYCODONE HCL 5 MG TABLET PO ×2 (01:18→16:08)
[2023-12-29] MEDS: PIPERACILLIN SODIUM/TAZOBACTAM 3.375 GM in 0.9 % SODIUM CHLORIDE 50 ML IV ×3 (04:28→21:45)
[2023-12-29 05:29] LABS: Basophils Absolute Auto 0.1 10^3/uL (0.0-0.1); Eosinophils Absolute Auto 0.2 10^3/uL (0.0-0.7); Eosinophils Percent Auto 2.6 % (0.9-7.0); Hematocrit 35.1 % (42.0-54.0); Hemoglobin 11.7 g/dL (14.0-18.0); Immature Granulocytes Abs Auto 0.05 10^3/uL (0.00-0.03); Immature Granulocytes Pct Auto 0.7 % (0.0-0.5); Lymphocytes Absolute Auto 0.8 10^3/uL (1.2-3.8); Lymphocytes Percent Auto 12.2 % (20.5-60.0); Mean Corpuscular HGB Conc 33.3 g/dL (29.9-35.2); Mean Corpuscular Hemoglobin 34.2 pg (25.9-34.0); Mean Corpuscular Volume 102.6 fL (80.0-94.0); Mean Platelet Volume 11.8 fL (9.5-13.5); Monocytes Absolute Auto 0.7 10^3/uL (0.3-0.8); Monocytes Percent Auto 10.8 % (1.7-12.0); Neutrophils Percent Auto 72.7 % (43.0-75.0); Platelet Count 160 10^3/uL (150-450); Red Blood Count 3.42 10^6/uL (4.70-6.10); Red Cell Distribution Width 14.8 % (11.0-15.0); White Blood Count 6.8 10^3/uL (4.0-11.0)
[2023-12-29 05:42] LABS: Alanine Aminotransferase 27 U/L (16-63); Albumin Globulin Ratio 0.6; Alkaline Phosphatase 148 U/L (46-116); Anion Gap 9.4; Aspartate Amino Transferase 54 U/L (15-37); Calcium 7.9 mg/dL (8.5-10.1); Carbon Dioxide 27.2 mmol/L (21.0-32.0); Chloride 104 mmol/L (98-107); Estimated GFR (African America >60 (>=60); Estimated GFR (Non-African Ame 57 (>=60); Globulin 3.6 g/dL; Glucose 86 mg/dL (74-106); Potassium 4.6 mmol/L (3.5-5.1); Sodium 136 mmol/L (136-145); Total Protein 5.6 g/dL (6.4-8.2)
[2023-12-29] MEDS: DULOXETINE HCL 60 MG CAPSULE.DR PO (08:45)
[2023-12-29] MEDS: FUROSEMIDE 20 MG TABLET PO (08:45)
[2023-12-29] MEDS: ASPIRIN 81 MG TABLET.DR PO (08:45)
[2023-12-29] MEDS: VERICIGUAT 2.5 MG 2.5 EACH PO (08:46)
--- NOTE | 2023-12-29 10:43 | REH.PTDLY ---
Physical Therapy Daily Note PT Daily Note/Assess Start: 12/27/23 09:02 Freq: Status: Active Protocol: Document 12/29/23 10:37 TARSHA (Rec: 12/29/23 10:43 TARSHA [id number]) Physical Therapy Daily Note/Assessment Time In 10:10 Time Out 10:21 Pain Level 4 Pain Level 4 Subjective Pt up in bathroom upon arrival . Reports pain in leg about 4/ 10 currently. Switching antibiotic as the one he was on should have done more by now per pt. Maybe can go home tomorrow per pt report. Therapeutic Exercise Minutes (minutes) 4 Therapeutic Exercise Units 0 Therapeutic Exercise Treatment Sitting bedside instructed in B LE seated exs includin LAQ, marching, and hip abd slides 15x ea for strength. Therapeutic Activity Minutes (minutes) 7 Therapeutic Activity Units 1 Therapeutic Activity Comments Pt stands at sink to wash hands for 2 mins. Gait in room with RW 45 feet SBA. CGA with sit to supine transfer, pt able to do so with help of guard rail on bed. Total Therapy Minutes 11 Total Physical Therapy Units 1 Daily Note Summary Improving mobility today around room SBA. Pain levels improved, but pain still present.
--- NOTE | 2023-12-29 11:06 | PM.IMPN1 ---
Progress Note: A&P Assessment and Plan (1) Cellulitis: Assessment and Plan: No noticeable improvement. CT leg showed no evidence of deeper tissue involvement or abscess. Will add IV Levaquin. Continue with Vanco and Zosyn. Continue with leg elevation. Qualifiers: Laterality: right Site of cellulitis: extremity Site of cellulitis of extremity: lower extremity Qualified Code(s): L03.115 - Cellulitis of right lower limb (2) Acute deep vein thrombosis of right lower extremity: Assessment and Plan: Ruled out. No need for anticoagulation Qualifiers: Affected thrombotic vein of extremity: unspecified vein of extremity Qualified Code(s): I82.401 - Acute embolism and thrombosis of unspecified deep veins of right lower extremity (3) MYLES (acute kidney injury): Assessment and Plan: Creatinine more or less at baseline (4) Acute on chronic systolic (congestive) heart failure: Assessment and Plan: More or less euvolemic now. C/w oral lasix. (5) Type 2 diabetes mellitus: Assessment and Plan: SSI while inpatient. Qualifiers: Diabetes mellitus custodial insulin use: without custodial use Diabetes mellitus complication status: with kidney complications Diabetes mellitus complication detail: with chronic kidney disease Chronic kidney disease stage: stage 3 (moderate) Chronic kidney disease stage 3 subtype: stage 3a (GFR 45-59) Qualified Code(s): E11.22 - Type 2 diabetes mellitus with diabetic chronic kidney disease; N18.31 - Chronic kidney disease, stage 3a (6) HTN (hypertension): Assessment and Plan: Stable. Monitor. Qualifiers: Hypertension type: primary hypertension Qualified Code(s): I10 - Essential (primary) hypertension (7) CONSTANCE (obstructive sleep apnea): Assessment and Plan: Cw/ CPAP (8) Morbid obesity: Assessment and Plan: Weight loss indicated. (9) CKD (chronic kidney disease) stage 3, GFR 30-59 ml/min: Assessment and Plan: Cr more or less at baseline Qualifiers: Chronic kidney disease stage 3 subtype: stage 3a (GFR 45-59) Qualified Code(s): N18.31 - Chronic kidney disease, stage 3a (10) HLD (hyperlipidemia): Assessment and Plan: Cw statin Qualifiers: Hyperlipidemia type: unspecified Qualified Code(s): E78.5 - Hyperlipidemia, unspecified Plan No improvement. Still has considerable erythema/pain/tenderness. Changed IV antibiotic and added IV Levaquin. Internal Medicine - PN: Subj Subjective Interval history: Seen and examined. No overnight events. No improvement noted in 24 hours, still has significant pain/erythema and tenderness. Exam Constitutional Vital Signs, click to edit/add: Last Vital Signs Temp 97.6 F 12/29/23 07:48 Pulse 66 12/29/23 07:48 Resp 14 12/29/23 07:48 BP 114/72 12/29/23 07:48 Pulse Ox 94 L 12/29/23 07:48 O2 Del Method Room Air 12/29/23 07:48 Documenting provider has reviewed patient's vital signs: yes Common normals: oriented x3 General appearance: cooperative and in distress mild Nutritional appearance: obese Respiratory Common normals: normal respiratory effort and clear to auscultation bilaterally Effort & inspection: able to speak in complete sentences and decreased respiratory effort Cardio Common normals: regular rate, regular rhythm, S1 normal heart sound and S2 normal heart sound Extremity Other: Right LE --->+2 edema, significantly indurated skin/erythema with tenderness extending from foot to just below knee. Internal Medicine - PN: Obj Da Labs Labs: Laboratory Results - last 24 hr 12/28/23 12/28/23 12/28/23 11:12 16:15 17:05 WBC RBC Hgb Hct MCV MCH MCHC RDW Plt Count MPV Neut % (Auto) Lymph % (Auto) [place] % (Auto) Eos % (Auto) Baso % (Auto) Neut # (Auto) Lymph # (Auto) [place] # (Auto) Eos # (Auto) Baso # (Auto) Abs Immat Gran (auto) Imm/Tot Granulo (auto) Sodium Potassium Chloride Carbon Dioxide Anion Gap BUN Creatinine Est GFR ( Amer) Est GFR (Non-Af Amer) BUN/Creatinine Ratio Glucose Calcium Total Bilirubin AST ALT Alkaline Phosphatase Total Protein Albumin Globulin Albumin/Globulin Ratio Vancomycin Trough 11.8 POC Glucose 107 H 94 12/28/23 12/29/23 20:46 04:41 WBC 6.8 RBC 3.42 L Hgb 11.7 L Hct 35.1 L MCV 102.6 H MCH 34.2 H MCHC 33.3 RDW 14.8 Plt Count 160 MPV 11.8 Neut % (Auto) 72.7 Lymph % (Auto) 12.2 L [place] % (Auto) 10.8 Eos % (Auto) 2.6 Baso % (Auto) 1.0 Neut # (Auto) 5.0 Lymph # (Auto) 0.8 L [place] # (Auto) 0.7 Eos # (Auto) 0.2 Baso # (Auto) 0.1 Abs Immat Gran (auto) 0.05 H Imm/Tot Granulo (auto) 0.7 H Sodium 136 Potassium 4.6 Chloride 104 Carbon Dioxide 27.2 Anion Gap 9.4 BUN 24.0 H Creatinine 1.26 Est GFR ( Amer) >60 Est GFR (Non-Af Amer) 57 L BUN/Creatinine Ratio 19.0 Glucose 86 Calcium 7.9 L Total Bilirubin 2.0 H AST 54 H ALT 27 Alkaline Phosphatase 148 H Total Protein 5.6 L Albumin 2.0 L Globulin 3.6 Albumin/Globulin Ratio 0.6 Vancomycin Trough POC Glucose 101
[2023-12-29] MEDS: 0.9 % SODIUM CHLORIDE 250 ML 10 ML IV (11:12)
[2023-12-29 11:26] LABS: Glucometer 89 mg/dL (74-106)
--- NOTE | 2023-12-29 13:55 | CM.NOTE ---
Rounds made with Dr. Rivera. Dr Rivera discussed CT results and plan to change antibiotics since little improvement. Javier verbalized understanding. No discharge today.
--- NOTE | 2023-12-29 14:35 | SWNOTE1 ---
SW spoke with pt and in room. SW let know that SW left her a message about the insurance. SW let her know that pt's name in insurance card is Massimo, not Javier. She voiced he goes by both. SW spoke to them both about HH. Pt voiced he is doing a little better today. They do not feel there is a need for HH at this time. SW did advise them that if he gets home and feels he needs it, his PCP can set it up from office. They voiced understanding.
[2023-12-29] MEDS: LEVOFLOXACIN IN DEXTROSE 5 % 250 MG/50 ML PIGGYBACK 50 MG IV (16:07)
[2023-12-29] MEDS: LEVOFLOXACIN IN DEXTROSE 5 % 500 MG/100 ML PIGGYBACK 100 MG IV (16:07)
[2023-12-29 16:32] LABS: Glucometer 111 mg/dL (74-106)
[2023-12-29] MEDS: VANCOMYCIN HCL 1,500 MG in 0.9 % SODIUM CHLORIDE 500 ML 250 MG IV (18:25)
[2023-12-29 19:54] LABS: Glucometer 89 mg/dL (74-106)
[2023-12-29] MEDS: ATORVASTATIN CALCIUM 40 MG TABLET PO (21:45)
[2023-12-30 04:05] VITALS: O2SAT 96
[2023-12-30 04:21] LABS: Basophils Absolute Auto 0.1 10^3/uL (0.0-0.1); Basophils Percent Auto 0.9 % (0.2-2.0); Eosinophils Absolute Auto 0.2 10^3/uL (0.0-0.7); Eosinophils Percent Auto 2.8 % (0.9-7.0); Hematocrit 36.6 % (42.0-54.0); Hemoglobin 12.3 g/dL (14.0-18.0); Immature Granulocytes Abs Auto 0.04 10^3/uL (0.00-0.03); Immature Granulocytes Pct Auto 0.6 % (0.0-0.5); Lymphocytes Absolute Auto 0.7 10^3/uL (1.2-3.8); Lymphocytes Percent Auto 10.7 % (20.5-60.0); Mean Corpuscular HGB Conc 33.6 g/dL (29.9-35.2); Mean Corpuscular Hemoglobin 34.3 pg (25.9-34.0); Mean Corpuscular Volume 101.9 fL (80.0-94.0); Mean Platelet Volume 11.6 fL (9.5-13.5); Monocytes Absolute Auto 0.7 10^3/uL (0.3-0.8); Monocytes Percent Auto 10.7 % (1.7-12.0); Neutrophils Absolute Auto 5.1 10^3/uL (1.4-6.5); Neutrophils Percent Auto 74.3 % (43.0-75.0); Platelet Count 163 10^3/uL (150-450); Red Blood Count 3.59 10^6/uL (4.70-6.10); Red Cell Distribution Width 14.6 % (11.0-15.0); White Blood Count 6.9 10^3/uL (4.0-11.0)
[2023-12-30] MEDS: ACETAMINOPHEN 325 MG TABLET 650 MG PO (04:26)
[2023-12-30] MEDS: OXYCODONE HCL 5 MG TABLET PO (04:26)
[2023-12-30] MEDS: PIPERACILLIN SODIUM/TAZOBACTAM 3.375 GM in 0.9 % SODIUM CHLORIDE 50 ML IV ×2 (04:30→11:03)
[2023-12-30 04:34] VITALS: BP 128/65; PULSE 71; TEMP 36.6; O2SAT 97
[2023-12-30 04:39] LABS: Alanine Aminotransferase 20 U/L (16-63); Albumin Globulin Ratio 0.5; Alkaline Phosphatase 154 U/L (46-116); Anion Gap 9.4; Aspartate Amino Transferase 56 U/L (15-37); BUN Creatinine Ratio 16.2; Bilirubin Total 1.7 mg/dL (0.2-1.0); Calcium 8.3 mg/dL (8.5-10.1); Carbon Dioxide 26.5 mmol/L (21.0-32.0); Chloride 101 mmol/L (98-107); Estimated GFR (African America >60 (>=60); Estimated GFR (Non-African Ame >60 (>=60); Globulin 4.2 g/dL; Glucose 94 mg/dL (74-106); Potassium 3.9 mmol/L (3.5-5.1); Sodium 133 mmol/L (136-145); Total Protein 6.2 g/dL (6.4-8.2)
[2023-12-30] MEDS: FUROSEMIDE 20 MG TABLET PO (09:20)
[2023-12-30] MEDS: ASPIRIN 81 MG TABLET.DR PO (09:20)
[2023-12-30] MEDS: DULOXETINE HCL 60 MG CAPSULE.DR PO (09:20)
[2023-12-30] MEDS: VERICIGUAT 2.5 MG 2.5 EACH PO (09:21)
--- NOTE | 2023-12-30 10:34 | PM.DS1 ---
DS: Providers Provider Date of admission: 12/26/23 11:10 Primary care physician: BEHZAD MOSS DO Admitting clinician: Shaikh Miguel Attending physician on admission: Shaikh Miguel Consults: 12/25/23 18:34 Occupational Therapy Eval and Treat Routine Reason for consultation: Ambulatory dysfunction/weakness Physical Therapy Eval and Treat Routine Reason for consultation: Ambulatory dysfunction/weakness Attending physician on discharge: Shaikh Miguel Discharging clinician: Shaikh Miguel Anticipated date of discharge: 12/30/23 DS: Diagnosis Discharge Diagnosis (1) Cellulitis: Qualifiers: Laterality: right Site of cellulitis: extremity Site of cellulitis of extremity: lower extremity Qualified Code(s): L03.115 - Cellulitis of right lower limb (2) Acute deep vein thrombosis of right lower extremity: Qualifiers: Affected thrombotic vein of extremity: unspecified vein of extremity Qualified Code(s): I82.401 - Acute embolism and thrombosis of unspecified deep veins of right lower extremity (3) MYLES (acute kidney injury): (4) Acute on chronic systolic (congestive) heart failure: (5) Type 2 diabetes mellitus: Qualifiers: Diabetes mellitus medical terminologist insulin use: without medical terminologist use Diabetes mellitus complication status: with kidney complications Diabetes mellitus complication detail: with chronic kidney disease Chronic kidney disease stage: stage 3 (moderate) Chronic kidney disease stage 3 subtype: stage 3a (GFR 45-59) Qualified Code(s): E11.22 - Type 2 diabetes mellitus with diabetic chronic kidney disease; N18.31 - Chronic kidney disease, stage 3a (6) HTN (hypertension): Qualifiers: Hypertension type: primary hypertension Qualified Code(s): I10 - Essential (primary) hypertension (7) CONSTANCE (obstructive sleep apnea): (8) Morbid obesity: (9) CKD (chronic kidney disease) stage 3, GFR 30-59 ml/min: Qualifiers: Chronic kidney disease stage 3 subtype: stage 3a (GFR 45-59) Qualified Code(s): N18.31 - Chronic kidney disease, stage 3a (10) HLD (hyperlipidemia): Qualifiers: Hyperlipidemia type: unspecified Qualified Code(s): E78.5 - Hyperlipidemia, unspecified DS: Summary Hospital Course Hospital Course: 68-year-old male presented with a right lower extremity swelling, erythema, tenderness for about 1 week for which she was seen by his PCP. Patient was prescribed Bactrim for cellulitis. He also had an ultrasound of right lower extremity and was put on Xarelto by his PCP. We initially thought that he had new right lower extremity DVT for which I put him on therapeutic dose of Eliquis but after confirmation from PCP and ultrasound in the hospital that there was no report or evidence of DVT, we discontinued Eliquis. Patient was initially started on IV vancomycin but showed no signs of improvement. Later on IV Zosyn was added. Patient continued to have significant erythema/tenderness and pain for which IV Levaquin was added to vancomycin, Zosyn that he was already receiving. Patient also had mild volume overload on initial admission and received IV Lasix and later on switched to p.o. Lasix. We ordered a CT right lower extremity to rule out deep tissue involvement/abscess and it was negative and showed only cellulitic changes. Patient is doing better since Levaquin was started and stable medically for discharge. Will discharge patient on oral Levaquin. He is to continue using his doxycycline that was previously prescribed by his PCP. Follow-up with PCP in 1 week. Patient educated on worrisome signs and symptoms that should prompt him to seek care if he were to develop fever worsening swelling, pain, erythema Status at Discharge Functional status at discharge: independent ambulation Overall status at discharge: patient is back to baseline Time Spent with Patient Time attestation: Total time spent providing and/or coordinating discharge services: Exam Constitutional Vital Signs, click to edit/add: Last Vital Signs Temp 97.8 F 12/30/23 04:34 Pulse 71 12/30/23 04:34 Resp 18 12/30/23 08:16 BP 128/65 12/30/23 04:34 Pulse Ox 97 12/30/23 04:34 O2 Del Method Room Air 12/30/23 04:34 Documenting provider has reviewed patient's vital signs: yes Common normals: oriented x3 General appearance: cooperative and in distress mild Nutritional appearance: obese Respiratory Common normals: normal respiratory effort and clear to auscultation bilaterally Effort & inspection: able to speak in complete sentences and decreased respiratory effort Cardio Common normals: regular rate, regular rhythm, S1 normal heart sound and S2 normal heart sound Extremity Other: Right LE --->+2 edema, improvement in edema, pain and erythema DS: Data Data Completed and Pending Labs on day of discharge: Labs from last 24 hours 12/30/23 12/29/23 12/29/23 03:54 19:53 16:32 WBC 6.9 RBC 3.59 L Hgb 12.3 L Hct 36.6 L MCV 101.9 H MCH 34.3 H MCHC 33.6 RDW 14.6 Plt Count 163 MPV 11.6 Neut % (Auto) 74.3 Lymph % (Auto) 10.7 L [place] % (Auto) 10.7 Eos % (Auto) 2.8 Baso % (Auto) 0.9 Neut # (Auto) 5.1 Lymph # (Auto) 0.7 L [place] # (Auto) 0.7 Eos # (Auto) 0.2 Baso # (Auto) 0.1 Abs Immat Gran (auto) 0.04 H Imm/Tot Granulo (auto) 0.6 H Sodium 133 L Potassium 3.9 Chloride 101 Carbon Dioxide 26.5 Anion Gap 9.4 BUN 19.0 H Creatinine 1.17 Est GFR ( Amer) >60 Est GFR (Non-Af Amer) >60 BUN/Creatinine Ratio 16.2 Glucose 94 Calcium 8.3 L Total Bilirubin 1.7 H AST 56 H ALT 20 Alkaline Phosphatase 154 H Total Protein 6.2 L Albumin 2.0 L Globulin 4.2 Albumin/Globulin Ratio 0.5 POC Glucose 89 111 H 12/29/23 11:25 WBC RBC Hgb Hct MCV MCH MCHC RDW Plt Count MPV Neut % (Auto) Lymph % (Auto) [place] % (Auto) Eos % (Auto) Baso % (Auto) Neut # (Auto) Lymph # (Auto) [place] # (Auto) Eos # (Auto) Baso # (Auto) Abs Immat Gran (auto) Imm/Tot Granulo (auto) Sodium Potassium Chloride Carbon Dioxide Anion Gap BUN Creatinine Est GFR ( Amer) Est GFR (Non-Af Amer) BUN/Creatinine Ratio Glucose Calcium Total Bilirubin AST ALT Alkaline Phosphatase Total Protein Albumin Globulin Albumin/Globulin Ratio POC Glucose 89 Preliminary micro results at discharge 12/25/23 17:04 - Preliminary Blood NO GROWTH AT 36-48 HOURS. FINAL TO FOLLOW. 12/25/23 16:53 Blood Culture Result 1 - Preliminary Blood NO GROWTH AT 36-48 HOURS. FINAL TO FOLLOW. Discharge Plan Discharge Disposition: Home, Self-Care Condition: Good Discharge Medications: New levofloxacin 500 mg tablet 500 mg PO DAILY 10 Days Qty: 10 0RF furosemide [Lasix] 20 mg tablet 20 mg PO DAILY Qty: 30 0RF Continued aspirin 81 mg capsule 81 mg PO DAILY celecoxib [Celebrex] 200 mg capsule 200 mg PO DAILY atorvastatin [Lipitor] 40 mg tablet 40 mg PO BEDTIME metformin 500 mg tablet 500 mg PO BIDWM Entresto 24-26 mg tablet 1 tab PO BID Xifaxan 550 mg tablet 550 mg PO BID cholecalciferol (vitamin D3) 1,250 mcg (50,000 unit) capsule 1,250 mcg PO QWEEK [place] 2.5 mg tablet 2.5 mg PO DAILY Rx Instructions: must administer with a meal/food doxycycline monohydrate 100 mg capsule 100 mg PO Q12H Rx Instructions: FILLED 12/23/23 X 15 DAYS duloxetine 60 mg capsule,delayed release(DR/EC) 60 mg PO DAILY Discontinued Xarelto 20 mg tablet 20 mg PO DAILY Rx Instructions: must administer with evening meal Activity: increase activity as tolerated Diet: advance to your usual diet Print Language: Japanese Patient Instructions: Cellulitis (GEN) Forms: Portal Instructions Follow Up Appointments: please schedule follow up with dr moss for 5-7 days [phone]. [address] [facility]
[2023-12-30 11:34] VITALS: O2SAT 97
--- NOTE | 2023-12-31 13:27 | CM.DCFOLLOWU ---
Person spoke with: pt's How are you feeling? sleeping How is your pain? foot and leg red and painful Did you understand your discharge instructions? yes Do you have any questions about your discharge instructions? no Were you given any prescriptions at discharge? yes Were you able to get your prescriptions filled? yes Do you understand how to take your medications as ordered? yes Do you have any questions about your follow up appointment and do you plan to keep your follow up appointment? no questions. PCP is closed was not able to schedule follow up yet Is there anything else that you would like to discuss? no Questions/Comments/Concerns/Other: none
== END 2023-12-30 13:05 | disposition home or self-care (01) | DRG 637 ==
LOC: ER 17:36 → MS 12-26 15:55
PROVIDERS: Admitting Provider Internal Medicine; Emergency Provider Emergency Medicine; PCP Internal Medicine; Visit Provider Internal Medicine
DX: E11.628 Type 2 diabetes mellitus with other skin complications (principal); I50.23 Acute on chronic systolic (congestive) heart failure; I13.0 Hypertensive heart and chronic kidney disease with heart failure and stage 1 through stage 4 chronic kidney disease, or unspecified chronic kidney disease; L03.115 Cellulitis of right lower limb; Z68.43 Body mass index [BMI] 50.0-59.9, adult; N17.9 Acute kidney failure, unspecified; E11.22 Type 2 diabetes mellitus with diabetic chronic kidney disease; N18.31 Chronic kidney disease, stage 3a; G47.33 Obstructive sleep apnea (adult) (pediatric); E66.01 Morbid (severe) obesity due to excess calories; E78.5 Hyperlipidemia, unspecified; Z79.82 Long term (current) use of aspirin; Z79.84 Long term (current) use of oral hypoglycemic drugs; Z79.899 Other long term (current) drug therapy
CPT/HCPCS: 36415; 73700; 80048; 80053; 80202; 82948; 83605; 85025; 87040; 93971; 94761; 96365; 96366; 96367; 96368; 96375; 96376; 97110; 97161; 97165; 97530; 99285; G0378; J1940; J1956; J2270; J2543; J3370

== ENCOUNTER 2024-01-02 17:15 | Inpatient (IN) | payer OTHER, SELFPAY ==
[2024-01-02 17:34] VITALS: BP 112/73; PULSE 68; TEMP 36.9; O2SAT 99; BMI 53.1
--- NOTE | 2024-01-02 18:00 | ED_ITS ---
<Statement entered by Yarelis Silva MD - 01/07/24 07:06> This documentation has been reviewed and approved. HPI HPI - General Adult General Chief complaint: Skin/Abscess/Foreign Body Stated complaint: RASH ON BELLY/BACK Time Seen by Provider: 01/02/24 17:43 Source: patient Mode of arrival: Wheelchair Limitations: no limitations History of Present Illness HPI narrative: Patient is a 68-year-old male who presents to the emergency department for worsening redness and rash ending from the right thigh to the abdomen and back. He was seen in this emergency department last week and admitted for cellulitis of the right lower extremity, at which time he had redness and swelling to the right calf. He had an ultrasound And CT angio of the right lower extremity whic h showed no evidence of abscess or DVT. Patient was treated with antibiotics and discharged home on Levaquin. His physician apparently added in doxycycline for him in the last several days so he is currently taking Levaquin and doxycycline. He states today he noticed a rash extending from the right thigh to the abdomen minimally and back. He has had no fevers, vomiting. He continues to have pain to the right lower extremity although he states he is able to walk more efficiently since leaving the hospital. He is not diabetic. Related Data Home Medications ?Medication ?Instructions ?Recorded ?Confirmed aspirin 81 mg capsule 81 mg PO DAILY 12/25/23 12/25/23 atorvastatin 40 mg tablet (Lipitor) 40 mg PO BEDTIME 12/25/23 12/26/23 celecoxib 200 mg capsule (Celebrex) 200 mg PO DAILY 12/25/23 12/25/23 cholecalciferol (vitamin D3) 1,250 1,250 mcg PO QWEEK 12/25/23 12/25/23 mcg (50,000 unit) capsule doxycycline monohydrate 100 mg 100 mg PO Q12H 12/25/23 12/26/23 capsule metformin 500 mg tablet 500 mg PO BIDWM 12/25/23 12/26/23 rifaximin 550 mg tablet (Xifaxan) 550 mg PO BID 12/25/23 12/25/23 sacubitril 24 mg-valsartan 26 mg 1 tab PO BID 12/25/23 12/25/23 tablet (Entresto) vericiguat 2.5 mg tablet (Verquvo) 2.5 mg PO DAILY 12/25/23 12/25/23 duloxetine 60 mg capsule,delayed 60 mg PO DAILY 12/26/23 12/26/23 release Previous Rx's ?Medication ?Instructions ?Recorded furosemide 20 mg tablet (Lasix) 20 mg PO DAILY #30 tabs 12/30/23 levofloxacin 500 mg tablet 500 mg PO DAILY 10 days #10 tabs 12/30/23 Allergies Allergy/AdvReac Type Severity Reaction Status Date / Time No Known Drug Allergies Allergy Verified 01/02/24 17:39 Opioid HPI Opioid Management Most Recent Opioid Data: Last Pain Scale 5 01/02/24 19:09 Last Pain Intensity 4 12/29/23 10:37 Last Pain Assessment 12/30/23 12:10 Last ED Pain Assessment 01/02/24 19:55 Last MAR Pain Assessment 01/02/24 19:09 Last ORT Total Score 0 12/25/23 18:38 Last ORT Risk Category Low Risk 12/25/23 18:38 Review of Systems ROS0 Constitutional Denies: fever or chills Ears, nose, mouth, and throat Denies: throat pain or nasal congestion Respiratory Denies: shortness of breath Gastrointestinal Denies: nausea or vomiting Musculoskeletal Reports: extremity pain and extremity swelling; Denies: back pain or neck pain Integumentary/Breast Reports: rash and redness Neurological Denies: weakness in extremities Hematologic/Lymphatic Denies: easy bruising or easy bleeding PFSH PFS Medical History (Updated 01/02/24 @ 20:26 by DOROTHY Landrum) HLD (hyperlipidemia) ?E78.5 - Hyperlipidemia, unspecified (ICD-10) Morbid obesity ?E66.01 - Morbid (severe) obesity due to excess calories (ICD-10) CONSTANCE (obstructive sleep apnea) ?G47.33 - Obstructive sleep apnea (adult) (pediatric) (ICD-10) HTN (hypertension) ?I10 - Essential (primary) hypertension (ICD-10) Type 2 diabetes mellitus ?E11.9 - Type 2 diabetes mellitus without complications (ICD-10) HFrEF (heart failure with reduced ejection fraction) ?I50.20 - Unspecified systolic (congestive) heart failure (ICD-10) CKD (chronic kidney disease) stage 3, GFR 30-59 ml/min ?N18.30 - Chronic kidney disease, stage 3 unspecified (ICD-10) Social History Within the past year, how often did you have a drink containing alcohol: never Score interpretation: A score less than 4 is consistent with normal alcohol consumption. Smoking status: Never smoker Non-prescribed substance use: denies use Previous occupational history: retired Highest level of school completed/degree received: high school graduate Are you now , , , , never or living with a partner: Little interest or pleasure in doing things: not at all Feeling down, depressed, or hopeless: not at all Feel stressed/tense/nervous/anxious/difficulty sleeping: not at all Exam Narrative Exam Narrative: Gen.: Awake, alert, in no distress Head: Normocephalic, atraumatic ENT: Moist mucous membranes Respiratory: No respiratory distress, lungs clear bilaterally Cardio: Regular rate and rhythm Gastrointestinal: Abdomen is soft, nondistended and nontender to palpation Extremities: Right lower extremity is diffusely edematous, erythematous with circumferential erythema of the calf, right thigh with patchy erythematous rash extending circumferentially. Psych: Normal mood and affect Neuro: No focal neuro deficit Skin: Warm, dry, intact; Erythematous maculopapular rash minimally over the abdomen and umbilicus, Low abdomen and flank. No vesicles or crusting. No pustules. No petechia or purpura Constitutional Vital Signs, click to edit/add: Last Vital Signs Temp 98.4 F 01/02/24 17:34 Pulse 62 01/02/24 19:08 Resp 18 01/02/24 19:08 BP 120/52 01/02/24 19:08 Pulse Ox 100 01/02/24 19:08 O2 Del Method Room Air 01/02/24 19:08 Course Vital Signs Vital signs: Vital Signs Temperature 98.4 F 01/02/24 17:34 Pulse Rate 68 01/02/24 17:34 Respiratory Rate 20 01/02/24 17:34 Blood Pressure 112/73 01/02/24 17:34 Pulse Oximetry 99 01/02/24 17:34 Oxygen Delivery Method Room Air 01/02/24 17:34 Temperature 98.4 F 01/02/24 17:34 Pulse Rate 62 01/02/24 19:08 Respiratory Rate 18 01/02/24 19:08 Blood Pressure 120/52 01/02/24 19:08 Pulse Oximetry 100 01/02/24 19:08 Oxygen Delivery Method Room Air 01/02/24 19:08 Medical Decision Making MDM Narrative Medical decision making narrative: Patient treated with IV fluids, pain medication. Concern for worsening cellulitis due to redness on the thigh. Repeat labs ordered showing an elevated inflammatory markers and mild renal insufficiency compared to previous. No leukocytosis or bandemia. Lactic acid is elevated but procalcitonin is normal. Blood cultures were repeated. Patient treated with Zosyn and vancomycin. Discussed with the hospitalist for admission and she requested a repeat CT of the right lower extremity without contrast to rule out Necrotizing fasciitis. CT was obtained and pending results, patient will be admitted for IV antibiotics and observation. SHARED APC VISIT, PHYSICIAN ATTESTATION: [id number] I performed a substantive part of the MDM during the patient?s E/M visit. I per sonally evaluated and examined the patient. I personally made or approved the documented management plan and acknowledge its risk of complications. Medical Records Medical records reviewed: Yes I reviewed the patient's medical records Lab Data Lab results reviewed: Yes I reviewed the patient's lab results Labs: Lab Results 01/02/24 Range/Units 18:11 WBC 7.6 (4.0-11.0) 10^3/uL RBC 3.60 L (4.70-6.10) 10^6/uL Hgb 12.3 L (14.0-18.0) g/dL Hct 37.1 L (42.0-54.0) % MCV 103.1 H (80.0-94.0) fL MCH 34.2 H (25.9-34.0) pg MCHC 33.2 (29.9-35.2) g/dL RDW 14.8 (11.0-15.0) % Plt Count 184 (150-450) 10^3/uL MPV 11.2 (9.5-13.5) fL Neut % (Auto) 74.2 (43.0-75.0) % Lymph % (Auto) 10.3 L (20.5-60.0) % Emmons % (Auto) 10.1 (1.7-12.0) % Eos % (Auto) 5.0 (0.9-7.0) % Baso % (Auto) 0.1 L (0.2-2.0) % Neut # (Auto) 5.7 (1.4-6.5) 10^3/uL Lymph # (Auto) 0.8 L (1.2-3.8) 10^3/uL Emmons # (Auto) 0.8 (0.3-0.8) 10^3/uL Eos # (Auto) 0.4 (0.0-0.7) 10^3/uL Baso # (Auto) 0.0 (0.0-0.1) 10^3/uL Abs Immat Gran (auto) 0.02 (0.00-0.03) 10^3/uL Imm/Tot Granulo (auto) 0.3 (0.0-0.5) % ESR 118 H (<=20) mm/hr PT 13.7 H (9.0-11.6) sec INR 1.33 VBG pH 7.365 (7.330-7.430) VBG pCO2 45.8 (40.0-52.0) mmHg Sodium 139 (136-145) mmol/L Potassium 4.5 (3.5-5.1) mmol/L Chloride 104 (98-107) mmol/L Carbon Dioxide 26.4 (21.0-32.0) mmol/L Anion Gap 13.1 BUN 27.0 H (7.0-18.0) mg/dL Creatinine 1.50 H (0.70-1.30) mg/dL Est GFR ( Amer) 56 L (>=60) Est GFR (Non-Af Amer) 46 L (>=60) BUN/Creatinine Ratio 18.0 Glucose 119 H (74-106) mg/dL Lactate 3.9 H* (0.4-2.0) mmol/L Calcium 8.7 (8.5-10.1) mg/dL Total Bilirubin 1.1 H (0.2-1.0) mg/dL AST 58 H (15-37) U/L ALT 31 (16-63) U/L Alkaline Phosphatase 175 H (46-116) U/L C-Reactive Protein 10.77 H (<=0.50) mg/dL NT-Pro-B Natriuret Pep 793.0 (<=900.0) pg/mL Total Protein 6.6 (6.4-8.2) g/dL Albumin 2.1 L (3.4-5.0) g/dL Globulin 4.5 g/dL Albumin/Globulin Ratio 0.5 Procalcitonin 0.26 (0.00-0.50) ng/mL Discharge Plan Discharge Chief Complaint: Skin/Abscess/Foreign Body Clinical Impression: Skin rash Cellulitis Qualifiers: Site of cellulitis: extremity Site of cellulitis of extremity: lower extremity Laterality: right Qualified Code(s): L03.115 - Cellulitis of right lower limb Patient Disposition: Admitted as Observation Time of Disposition Decision: 20:26 Condition: Good
[2024-01-02 18:31] LABS: PCO2 VBG 45.8 mmHg (40.0-52.0); pH VBG 7.365 (7.330-7.430)
[2024-01-02 18:32] LABS: Basophils Percent Auto 0.1 % (0.2-2.0); Eosinophils Absolute Auto 0.4 10^3/uL (0.0-0.7); Hematocrit 37.1 % (42.0-54.0); Hemoglobin 12.3 g/dL (14.0-18.0); Immature Granulocytes Abs Auto 0.02 10^3/uL (0.00-0.03); Immature Granulocytes Pct Auto 0.3 % (0.0-0.5); Lymphocytes Absolute Auto 0.8 10^3/uL (1.2-3.8); Lymphocytes Percent Auto 10.3 % (20.5-60.0); Mean Corpuscular HGB Conc 33.2 g/dL (29.9-35.2); Mean Corpuscular Hemoglobin 34.2 pg (25.9-34.0); Mean Corpuscular Volume 103.1 fL (80.0-94.0); Mean Platelet Volume 11.2 fL (9.5-13.5); Monocytes Absolute Auto 0.8 10^3/uL (0.3-0.8); Monocytes Percent Auto 10.1 % (1.7-12.0); Neutrophils Absolute Auto 5.7 10^3/uL (1.4-6.5); Neutrophils Percent Auto 74.2 % (43.0-75.0); Platelet Count 184 10^3/uL (150-450); Red Cell Distribution Width 14.8 % (11.0-15.0); White Blood Count 7.6 10^3/uL (4.0-11.0)
[2024-01-02 18:39] LABS: Erythrocyte Sedimentation Rate 118 mm/hr (<=20)
[2024-01-02 18:46] LABS: INR 1.33; Prothrombin Time 13.7 sec (9.0-11.6)
[2024-01-02 18:47] LABS: Alanine Aminotransferase 31 U/L (16-63); Albumin Globulin Ratio 0.5; Albumin Level 2.1 g/dL (3.4-5.0); Alkaline Phosphatase 175 U/L (46-116); Anion Gap 13.1; Aspartate Amino Transferase 58 U/L (15-37); Bilirubin Total 1.1 mg/dL (0.2-1.0); Calcium 8.7 mg/dL (8.5-10.1); Carbon Dioxide 26.4 mmol/L (21.0-32.0); Chloride 104 mmol/L (98-107); Estimated GFR (African America 56 (>=60); Estimated GFR (Non-African Ame 46 (>=60); Globulin 4.5 g/dL; Glucose 119 mg/dL (74-106); Potassium 4.5 mmol/L (3.5-5.1); Sodium 139 mmol/L (136-145); Total Protein 6.6 g/dL (6.4-8.2)
[2024-01-02 18:53] LABS: C Reactive Protein 10.77 mg/dL (<=0.50)
[2024-01-02 18:55] LABS: Lactate/Lactic Acid 3.9 mmol/L (0.4-2.0)
[2024-01-02] MEDS: 0.9 % SODIUM CHLORIDE 1,000 ML 999 ML IV (19:05)
[2024-01-02] MEDS: ONDANSETRON PF 4 MG/2 ML VIAL IV (19:05)
[2024-01-02 19:08] VITALS: BP 120/52; PULSE 62; O2SAT 100
[2024-01-02] MEDS: HYDROMORPHONE HCL 0.5 MG/0.5 ML SYRINGE IV (19:09)
[2024-01-02 19:10] LABS: PROCALCITONIN 0.26 ng/mL (0.00-0.50)
--- NOTE | 2024-01-02 19:14 | PC.NURSE ---
Right leg swollen and reddened, warm and painful. Patient has been treating cellulitis for past week.
--- NOTE | 2024-01-02 19:47 | CT_ITS ---
The [address] [address] Patient Name: CARA CERVANTES MRN: [id number] date: 1955 Sex: M Assigned Patient Location: ED.MAIN Current Patient Location: ED.MAIN Accession/Order Number: [id number] Exam Date: 01/02/2024 20:06 Report Date: 01/02/2024 21:27 At the request of: MITA MEDRANO Procedure: CT lower leg RT wo con Examination:CT femur RT wo con, CT lower leg RT wo con INDICATION:Cellulitis COMPARISON:CT right lower leg dated 12/28/2023. TECHNIQUE:Multiple thin section transaxial slices were acquired through the right femur and through the right lower leg without contrast. Coronal and sagittal reconstructed images were reviewed. FINDINGS: CT right femur: Evaluation for abscess is somewhat limited due to the lack of intravenous contrast. There is very severe subcutaneous soft tissue edema extending through the right thigh. This is more severe in the lateral thigh in the mid to upper right femur. No definitive organized collection of fluid is present to suggest abscess. There is no gas in the soft tissues. The imaging findings may be secondary to venous stasis versus severe cellulitis. There is no joint effusion in the left knee. Moderate narrowing is present in the right hip. There is moderate to severe degeneration in the medial right knee joint. There is mild to moderate degeneration in the patellofemoral and lateral joint space of the right knee. CT right lower extremity: There is very severe subcutaneous edema throughout the right lower extremity. Similar findings were present on the previous examination. This could be secondary to venous stasis versus cellulitis. No gas is present in the soft tissues. No definitive organized collections of fluid are present that would suggest abscess. The osseous structures of the right lower extremity are intact without acute fracture. No bony erosive changes are present that would suggest osteomyelitis. CT/CT lower leg RT wo con IMPRESSION: 1. Severe subcutaneous edema in the soft tissues of the right femur and the right lower extremity which may represent sequela to venous stasis versus severe cellulitis. 2. No definitive organized fluid collections to suggest abscess within the limits of this unenhanced CT scan. No gas is present in the soft tissues. 3. No erosive changes are present to suggest osteomyelitis. Electronically authenticated by: CHRISTOS GLEZ Date: 01/02/2024 21:27
--- NOTE | 2024-01-02 19:47 | CT_ITS ---
The [address] [address] Patient Name: CARA CERVANTES MRN: [id number] date: 1955 Sex: M Assigned Patient Location: ED.MAIN Current Patient Location: ED.MAIN Accession/Order Number: [id number] Exam Date: 01/02/2024 20:06 Report Date: 01/02/2024 21:27 At the request of: MITA MEDRANO Procedure: CT femur RT wo con Examination:CT femur RT wo con, CT lower leg RT wo con INDICATION:Cellulitis COMPARISON:CT right lower leg dated 12/28/2023. TECHNIQUE:Multiple thin section transaxial slices were acquired through the right femur and through the right lower leg without contrast. Coronal and sagittal reconstructed images were reviewed. FINDINGS: CT right femur: Evaluation for abscess is somewhat limited due to the lack of intravenous contrast. There is very severe subcutaneous soft tissue edema extending through the right thigh. This is more severe in the lateral thigh in the mid to upper right femur. No definitive organized collection of fluid is present to suggest abscess. There is no gas in the soft tissues. The imaging findings may be secondary to venous stasis versus severe cellulitis. There is no joint effusion in the left knee. Moderate narrowing is present in the right hip. There is moderate to severe degeneration in the medial right knee joint. There is mild to moderate degeneration in the patellofemoral and lateral joint space of the right knee. CT right lower extremity: There is very severe subcutaneous edema throughout the right lower extremity. Similar findings were present on the previous examination. This could be secondary to venous stasis versus cellulitis. No gas is present in the soft tissues. No definitive organized collections of fluid are present that would suggest abscess. The osseous structures of the right lower extremity are intact without acute fracture. No bony erosive changes are present that would suggest osteomyelitis. CT/CT femur RT wo con IMPRESSION: 1. Severe subcutaneous edema in the soft tissues of the right femur and the right lower extremity which may represent sequela to venous stasis versus severe cellulitis. 2. No definitive organized fluid collections to suggest abscess within the limits of this unenhanced CT scan. No gas is present in the soft tissues. 3. No erosive changes are present to suggest osteomyelitis. Electronically authenticated by: CHRISTOS GLEZ Date: 01/02/2024 21:27
[2024-01-02] MEDS: PIPERACILLIN SODIUM/TAZOBACTAM 3.375 GM in 0.9 % SODIUM CHLORIDE 50 ML IV (20:18)
[2024-01-02] MEDS: VANCOMYCIN HCL 2,000 MG in 0.9 % SODIUM CHLORIDE 500 ML 250 MG IV (20:56)
[2024-01-02 21:34] LABS: Lactate/Lactic Acid 2.8 mmol/L (0.4-2.0)
[2024-01-02 22:10] VITALS: BP 114/63; PULSE 56; TEMP 36.5; O2SAT 97; BMI 54.1
[2024-01-02 22:51] LABS: Glucometer 102 mg/dL (74-106)
[2024-01-02] MEDS: 0.9 % SODIUM CHLORIDE 1,000 ML 75 ML IV (23:09)
[2024-01-02] MEDS: ATORVASTATIN CALCIUM 40 MG TABLET PO (23:10)
[2024-01-02] MEDS: TEMAZEPAM 15 MG CAPSULE PO (23:10)
[2024-01-02] MEDS: ENOXAPARIN SODIUM 40 MG/0.4 ML SYRINGE SUBQ (23:11)
[2024-01-02 23:58] VITALS: PULSE 61
[2024-01-03] VITALS (16 sets, daily range): BP systolic 95–119; BP diastolic 57–71; PULSE 60–72; TEMP 36.3–37.2; O2SAT 91–96
[2024-01-03 04:54] LABS: Basophils Percent Auto 0.5 % (0.2-2.0); Eosinophils Absolute Auto 0.4 10^3/uL (0.0-0.7); Eosinophils Percent Auto 5.5 % (0.9-7.0); Hematocrit 35.4 % (42.0-54.0); Hemoglobin 11.8 g/dL (14.0-18.0); Immature Granulocytes Abs Auto 0.04 10^3/uL (0.00-0.03); Immature Granulocytes Pct Auto 0.5 % (0.0-0.5); Lymphocytes Absolute Auto 1.1 10^3/uL (1.2-3.8); Lymphocytes Percent Auto 14.8 % (20.5-60.0); Mean Corpuscular HGB Conc 33.3 g/dL (29.9-35.2); Mean Corpuscular Hemoglobin 34.5 pg (25.9-34.0); Mean Corpuscular Volume 103.5 fL (80.0-94.0); Mean Platelet Volume 11.7 fL (9.5-13.5); Monocytes Absolute Auto 0.9 10^3/uL (0.3-0.8); Monocytes Percent Auto 11.5 % (1.7-12.0); Neutrophils Percent Auto 67.2 % (43.0-75.0); Platelet Count 159 10^3/uL (150-450); Red Blood Count 3.42 10^6/uL (4.70-6.10); Red Cell Distribution Width 14.9 % (11.0-15.0); White Blood Count 7.5 10^3/uL (4.0-11.0)
[2024-01-03 05:14] LABS: Alanine Aminotransferase 30 U/L (16-63); Albumin Globulin Ratio 0.5; Alkaline Phosphatase 202 U/L (46-116); Anion Gap 7.5; Aspartate Amino Transferase 57 U/L (15-37); Calcium 8.8 mg/dL (8.5-10.1); Carbon Dioxide 28.4 mmol/L (21.0-32.0); Chloride 108 mmol/L (98-107); Estimated GFR (African America >60 (>=60); Estimated GFR (Non-African Ame 51 (>=60); Globulin 4.3 g/dL; Glucose 94 mg/dL (74-106); Magnesium 1.5 mg/dL (1.8-2.4); Potassium 4.9 mmol/L (3.5-5.1); Sodium 139 mmol/L (136-145); Total Protein 6.3 g/dL (6.4-8.2)
[2024-01-03] MEDS: CELECOXIB 200 MG CAPSULE PO (08:45)
[2024-01-03] MEDS: SACUBITRIL/VALSARTAN 24 MG-26 MG TABLET 1 TAB PO ×2 (08:45→21:25)
[2024-01-03] MEDS: FUROSEMIDE 20 MG TABLET PO (08:45)
[2024-01-03] MEDS: DULOXETINE HCL 60 MG CAPSULE.DR PO (08:45)
[2024-01-03] MEDS: RIFAXIMIN 550 MG TABLET PO (08:45)
[2024-01-03] MEDS: ASPIRIN 81 MG TABLET.DR PO (08:45)
[2024-01-03] MEDS: MAGNESIUM SULFATE IN WATER 2 GM/50 ML PREMIX IV (08:46)
[2024-01-03 09:25] LABS: Lactate/Lactic Acid 1.6 mmol/L (0.4-2.0)
--- NOTE | 2024-01-03 10:39 | P.HP_ITS ---
<Statement entered by Rob Martin MD - 01/03/24 19:29> Patient seen and examined, agree with assessment and plan below. Recently hospitalized with cellulitis. Rash on leg worsened and increased pain and redness. Developed rash on trunk and arms that appears to be drug reaction. Antibiotics adjusted and steroids added. Diagnosis: 1. Cellulitis right leg 2. Dermatitis 3. DM2 4. HTN 5. Chronic HFrEF 6. Morbid obesity 7. CKD 3a HPI H&P: HPI History of Present Illness Chief complaint: CELLULITIS/RASH Narrative: 01/03/24 0850 This is a 68-year-old male patient with a past medical history as outlined below including prediabetes, HFrEF, morbid obesity, CKD 3A, and recent admission to this facility for right lower extremity cellulitis; who presented to the ED yesterday afternoon complaining of worsening cellulitis of the right lower extremity and onset of rash. The patient was admitted to this facility from 12/25 through 12/30/2023 for right lower extremity cellulitis. He was initially treated with IVPB Zosyn and vancomycin with an adequate improvement and thus Levaquin was added to his medication profile. He began to see improvement and was discharged home on Levaquin and doxycycline which the patient reports taking as prescribed. He was doing well initially after discharge but after couple of days began to notice a rash developing on his right thigh and trunk. When his right leg became increasingly red, swollen, and tender he re-presented to the ED for further evaluation. Workup in the ED revealed stable CKD 3 AA on labs, normal WBCs, however inflammatory markers were elevated (ESR 118, CRP 10.77). Lactic acidosis was also noted that was trending down but not resolved by the time of admission to to the medical floor (3.9, 2.8). Mild hypomagnesia was also noted (1.5). CT imaging of the right lower extremity revealed severe swelling consistent with cellulitis but no evidence of osteomyelitis, abscess or gas formation consistent with necrosis. He was readmitted as an inpatient to the hospitalist service for worsening right lower extremity cellulitis involving more than 50% of the extremity. At the time of my exam the patient is resting in bed having just returned from walking to the bathroom. He complains of significant pain to the right lower extremity to touch. He noted peeling starting to his right foot yesterday. His right lower extremity has been very itchy and with the rash spreading to his entire trunk he is complaining of pruritus there as well. 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 No mucocutaneous involvement is noted. There is some rash formation on the upper extremities but not on the left lower extremity at all. Adverse drug reaction is also within the differential as a cause of this patient's rash. We will completely change the antibiotics being used to treat his cellulitis and add steroids to his treatment regimen. We will monitor closely for necrotic changes to the skin. Opioid HPI Opioid Management Most Recent Pain and Opioid Data: Last Pain Scale 5 01/03/24 13:28 Last Pain Intensity 4 12/29/23 10:37 Last Pain Assessment 01/03/24 14:08 Last ED Pain Assessment 01/02/24 19:55 Last MAR Pain Assessment 01/03/24 14:08 Last ORT Total Score 0 01/02/24 22:10 Last ORT Risk Category Low Risk 01/02/24 22:10 Review of Systems ROS Status of ROS 10 or more systems reviewed and unremark able except as noted in history and below [facility] Medical History (Updated 01/03/24 @ 12:07 by Heather Garcia NP) IBS (irritable bowel syndrome) ?K58.9 - Irritable bowel syndrome without diarrhea (ICD-10) Depression ?F32.A - Depression, unspecified (ICD-10) CKD stage 3a, GFR 45-59 ml/min ?N18.31 - Chronic kidney disease, stage 3a (ICD-10) Morbid obesity ?E66.01 - Morbid (severe) obesity due to excess calories (ICD-10) HFrEF (heart failure with reduced ejection fraction) ?I50.20 - Unspecified systolic (congestive) heart failure (ICD-10) HTN (hypertension) ?I10 - Essential (primary) hypertension (ICD-10) Type 2 diabetes mellitus ?E11.9 - Type 2 diabetes mellitus without complications (ICD-10) HLD (hyperlipidemia) ?E78.5 - Hyperlipidemia, unspecified (ICD-10) CONSTANCE (obstructive sleep apnea) ?G47.33 - Obstructive sleep apnea (adult) (pediatric) (ICD-10) CKD (chronic kidney disease) stage 3, GFR 30-59 ml/min ?N18.30 - Chronic kidney disease, stage 3 unspecified (ICD-10) Social History Within the past year, how often did you have a drink containing alcohol: never Score interpretation: A score less than 4 is consistent with normal alcohol consumption. Smoking status: Never smoker Non-prescribed substance use: denies use Previous occupational history: retired Highest level of school completed/degree received: high school graduate Are you now , , , , never or living with a partner: Little interest or pleasure in doing things: not at all Feeling down, depressed, or hopeless: not at all Feel stressed/tense/nervous/anxious/difficulty sleeping: not at all Do you think of yourself as: straight/heterosexual Gender Identity: male Meds Home Medications and Allergies Home Medications ?Medication ?Instructions ?Recorded ?Confirmed ?Type aspirin 81 mg capsule 81 mg PO DAILY 12/25/23 01/02/24 History atorvastatin 40 mg tablet (Lipitor) 40 mg PO BEDTIME 12/25/23 01/02/24 History celecoxib 200 mg capsule (Celebrex) 200 mg PO DAILY 12/25/23 01/02/24 History cholecalciferol (vitamin D3) 1,250 1,250 mcg PO QWEEK 12/25/23 01/02/24 History mcg (50,000 unit) capsule doxycycline monohydrate 100 mg 100 mg PO Q12H 12/25/23 01/02/24 History capsule metformin 500 mg tablet 500 mg PO BIDWM 12/25/23 01/02/24 History rifaximin 550 mg tablet (Xifaxan) 550 mg PO BID 12/25/23 01/02/24 History sacubitril 24 mg-valsartan 26 mg 1 tab PO BID 12/25/23 01/02/24 History tablet (Entresto) vericiguat 2.5 mg tablet (Verquvo) 2.5 mg PO DAILY 12/25/23 01/02/24 History duloxetine 60 mg capsule,delayed 60 mg PO DAILY 12/26/23 01/02/24 History release furosemide 20 mg tablet (Lasix) 20 mg PO DAILY #30 tabs 12/30/23 01/02/24 Rx levofloxacin 500 mg tablet 500 mg PO DAILY 10 days #10 tabs 12/30/23 01/02/24 Rx Allergies Allergy/AdvReac Type Severity Reaction Status Date / Time No Known Drug Allergies Allergy Verified 01/02/24 17:39 Exam Constitutional Vital Signs, click to edit/add: Last Vital Signs Temp 98.9 F 01/03/24 07:51 Pulse 62 01/03/24 10:05 Resp 12 01/03/24 07:51 BP 95/57 01/03/24 07:51 Pulse Ox 91 L 01/03/24 03:23 O2 Del Method Room Air 01/03/24 07:51 Common normals: no apparent distress, oriented x3, alert and well nourished General appearance: cooperative Orientation/consciousness: Yes awake HENMT Common normals: normocephalic, head/scalp atraumatic, hearing grossly normal bilaterally, external nose normal and moist oral mucous membranes Eye Common normals: PERRL, EOMs intact bilaterally, conjunctivae normal and no scleral icterus Alignment: alignment normal Eyelid: eyelids normal Neck & C-Spine Common normals: full ROM, supple and no JVD Chest Common normals: inspection of chest normal Chest: symmetrical chest wall rise and rash (maculopapular, pruritic rash from neck to groin/R thigh) Respiratory Common normals: normal respiratory effort, no retractions, no use of accessory muscles and clear to auscultation bilaterally Cardio Common normals: no JVD, regular rate, regular rhythm, S1 normal heart sound, S2 normal heart sound, no gallops, no clicks, no rub and peripheral pulses 2+ throughout Heart sounds: murmur (HSM 2/6) GI Common normals: Normal to inspection, nondistended, normoactive bowel sounds present, soft to palpation, non-tender, no hepatosplenomegaly, no masses and no bruits Bladder/kidney exam: bladder normal to palpation Extremity Common normals: normal capillary refill General: normal exam except as noted; no clubbing and no cyanosis Other: RLE - Extensive cellulitic changes: swelling, erythema, calor, tenderness from groin/hip to toes. Thigh cellulitis patchy w/ surrounding rash. R foot/ankle peeling dry skin. Neuro Chris Coma Scale: GCS not evaluated Common normals: CN's II-XII intact bilaterally, moves all extremities, no focal motor deficits and no sensory deficits noted Speech: speech normal Motor exam: strength 5/5 throughout Psych Common normals: mental status grossly normal, thought process normal, affect normal and activity/motor behavior normal Results Labs Labs: Short CBC 01/02/24 01/03/24 Range/Units 18:11 04:38 WBC 7.6 7.5 (4.0-11.0) 10^3/uL Hgb 12.3 L 11.8 L (14.0-18.0) g/dL Hct 37.1 L 35.4 L (42.0-54.0) % Plt Count 184 159 (150-450) 10^3/uL BMP 01/02/24 01/03/24 18:11 04:38 Sodium 139 139 Potassium 4.5 4.9 Chloride 104 108 H Carbon Dioxide 26.4 28.4 BUN 27.0 H 29.0 H Creatinine 1.50 H 1.38 H Glucose 119 H 94 Calcium 8.7 8.8 Liver Function 01/02/24 01/03/24 Range/Units 18:11 04:38 Total Bilirubin 1.1 H 1.0 (0.2-1.0) mg/dL AST 58 H 57 H (15-37) U/L ALT 31 30 (16-63) U/L Alkaline Phosphatase 175 H 202 H (46-116) U/L Albumin 2.1 L 2.0 L (3.4-5.0) g/dL ABG ABG results: 01/02/24 18:11 VBG pH 7.365 VBG pCO2 45.8 Pulse Oximetry Attestation: I have reviewed the pertinent pulse oximetry results. Imaging CT - Lower Extremity: Attestation: I have reviewed the pertinent imaging results. Radiologist's impression: IMPRESSION: 1. Severe subcutaneous edema in the soft tissues of the right femur and the right lower extremity which may represent sequela to venous stasis versus severe cellulitis. 2. No definitive organized fluid collections to suggest abscess within the limits of this unenhanced CT scan. No gas is present in the soft tissues. 3. No erosive changes are present to suggest osteomyelitis. CT Femur: Attestation: I have reviewed the pertinent imaging results. Radiologist's impression: IMPRESSION: 1. Severe subcutaneous edema in the soft tissues of the right femur and the right lower extremity which may represent sequela to venous stasis versus severe cellulitis. 2. No definitive organized fluid collections to suggest abscess within the limits of this unenhanced CT scan. No gas is present in the soft tissues. 3. No erosive changes are present to suggest osteomyelitis. Assessment and Plan Assessment and Plan (1) Cellulitis of right leg: Assessment and Plan: Acute * Adm inpatient * We anticipate greater than a 2 midnight stay for medically necessary hospital care including IV ABX, IVFs, close nursing monitoring of skin rash/disruption, and IV electrolyte repletion. * Approx 90% involvement of RLE * IVPB Primaxin and Zyvox for broad gram neg and pos coverage * D/C Zosyn/Vanco as both were use during prior admission w/ poor response * Avoid Levaquin & Doxy as adverse drug reaction is possible after discharge on these medications * No drainage noted - unable to obtain cultures to further guide ABX choices * Gentle NS IVF initially at 75 ml/hr, reduce to 50 ml/hr to avoid fluid overload in a pt w/ HFrEF * BC x 1 obtained in the ED * Procalcitonin elevated indicating bacterial infection, but not to the level of sepsis concern (0.26) - repeat today improving (0.20) * Pt afebrile w/o leukocytosis - low suspicion of sepsis at this time * Daily CBC, CMP, Lactic acid, (2) Skin rash: Assessment and Plan: Acute * Unclear etiology - suspect adverse drug reaction, but SJS remains within the differential * Change ABX regimen as noted above * IVP solu-medrol 62.5 q6h * Benadryl PO PRN for itching * Monitor closely for development of bullae or skin layer detachment (3) Lactic acidosis: Assessment and Plan: Acute * Likely 2/2 to infection, but little clinical concern for sepsis at this time w ith stable BP, mentation, and no leukocytosis or fever * Trending down - 3.9, 2.8 in ED * Repeat now to confirm resolution (4) Hypomagnesemia: Assessment and Plan: Acute * Mild - 1.5 in ED - asymptomatic * Replete w/ 2gm Mag sulfate * Repeat mag level in AM * Tele monitoring (5) CKD stage 3a, GFR 45-59 ml/min: Assessment and Plan: Chronic * Stable at baseline * Gentle IVF in setting of HFrEF and infection * CMP daily to monitor (6) HFrEF (heart failure with reduced ejection fraction): Assessment and Plan: Chronic * Appears clinically euvolemic * Continue home PO lasix, Entresto, Verguvo (7) Type 2 diabetes mellitus: Assessment and Plan: Chronic * Hold home metformin for now during acute infection/hospitalization * ACHS glucometer checks * Med CC diet * Med SSI for glucose correction Qualifiers: Chronic kidney disease stage: stage 3 (moderate) Chronic kidney disease stage 3 subtype: stage 3a (GFR 45-59) Diabetes mellitus complication detail: with chronic kidney disease Diabetes mellitus complication status: with kidney complications Diabetes mellitus detention insulin use: without detention use Qualified Code(s): E11.22 - Type 2 diabetes mellitus with diabetic chronic kidney disease; N18.31 - Chronic kidney disease, stage 3a (8) CONSTANCE (obstructive sleep apnea): Assessment and Plan: Chronic * OK to use home CPAP with sleep (9) Depression: Assessment and Plan: Chronic * Hold home SSRI d/t concurrent administration of Linezolid and concern for possible SJS (10) IBS (irritable bowel syndrome): Assessment and Plan: Chronic * Hold home Rifaximin used to treat frequent diarrhea in setting of clinical concern for possible SJS
[2024-01-03 11:10] LABS: Glucometer 106 mg/dL (74-106)
[2024-01-03] MEDS: METHYLPREDNISOLONE SOD SUCC PF 125 MG/2 ML VIAL 62.5 MG IVP ×2 (11:18→17:53)
[2024-01-03] MEDS: LINEZOLID IN DEXTROSE 5% 600 MG/300 ML PIGGYBACK 300 MG IV ×2 (11:18→21:59)
--- NOTE | 2024-01-03 12:22 | CM.NOTE ---
Rounds were made with Dr. Martin. Dr. Martin discussed labs, plan of care with adjustment of meds with Javier. Plan is to adjust IV antibiotics, order IV Bendaryl, IV Solumedrol. Javier verbalized understanding. No discharge today.
[2024-01-03] MEDS: 0.9 % SODIUM CHLORIDE 1,000 ML 50 ML IV (13:18)
[2024-01-03] MEDS: OXYCODONE HCL/ACETAMINOPHEN 5MG/325MG 1 TAB PO ×2 (13:19→21:24)
[2024-01-03] MEDS: DIPHENHYDRAMINE HCL 25 MG CAPSULE 50 MG PO ×2 (13:19→21:25)
[2024-01-03] MEDS: IMIPENEM/CILASTATIN SODIUM 1,000 MG in 0.9 % SODIUM CHLORIDE 100 ML 100 MG IV ×2 (13:19→22:00)
[2024-01-03 16:45] LABS: Glucometer 105 mg/dL (74-106)
[2024-01-03 20:37] LABS: Glucometer 163 mg/dL (74-106)
[2024-01-03] MEDS: ENOXAPARIN SODIUM 40 MG/0.4 ML SYRINGE SUBQ (21:23)
[2024-01-03] MEDS: ATORVASTATIN CALCIUM 40 MG TABLET PO (21:24)
[2024-01-03] MEDS: TEMAZEPAM 15 MG CAPSULE PO (22:01)
[2024-01-04] VITALS (22 sets, daily range): BP systolic 100–121; BP diastolic 56–68; PULSE 57–79; TEMP 36.2–36.8; O2SAT 90–98
[2024-01-04] MEDS: METHYLPREDNISOLONE SOD SUCC PF 125 MG/2 ML VIAL 62.5 MG IVP ×4 (00:19→21:04)
[2024-01-04] MEDS: ACETAMINOPHEN 325 MG TABLET 650 MG PO (00:30)
[2024-01-04] MEDS: OXYCODONE HCL/ACETAMINOPHEN 5MG/325MG 1 TAB PO (04:23)
[2024-01-04 05:22] LABS: Basophils Percent Auto 0.1 % (0.2-2.0); Hematocrit 36.7 % (42.0-54.0); Hemoglobin 12.3 g/dL (14.0-18.0); Immature Granulocytes Abs Auto 0.07 10^3/uL (0.00-0.03); Immature Granulocytes Pct Auto 0.7 % (0.0-0.5); Lymphocytes Absolute Auto 0.4 10^3/uL (1.2-3.8); Lymphocytes Percent Auto 4.2 % (20.5-60.0); Mean Corpuscular HGB Conc 33.5 g/dL (29.9-35.2); Mean Corpuscular Hemoglobin 34.6 pg (25.9-34.0); Mean Corpuscular Volume 103.1 fL (80.0-94.0); Mean Platelet Volume 11.6 fL (9.5-13.5); Monocytes Absolute Auto 0.2 10^3/uL (0.3-0.8); Monocytes Percent Auto 1.8 % (1.7-12.0); Neutrophils Percent Auto 93.2 % (43.0-75.0); Platelet Count 185 10^3/uL (150-450); Red Blood Count 3.56 10^6/uL (4.70-6.10); Red Cell Distribution Width 14.4 % (11.0-15.0); White Blood Count 9.6 10^3/uL (4.0-11.0)
[2024-01-04 05:40] LABS: Erythrocyte Sedimentation Rate 107 mm/hr (<=20)
[2024-01-04 06:02] LABS: Alanine Aminotransferase 36 U/L (16-63); Albumin Globulin Ratio 0.4; Alkaline Phosphatase 177 U/L (46-116); Anion Gap 9.9; Aspartate Amino Transferase 57 U/L (15-37); BUN Creatinine Ratio 19.4; Bilirubin Total 0.8 mg/dL (0.2-1.0); C Reactive Protein 8.11 mg/dL (<=0.50); Calcium 8.7 mg/dL (8.5-10.1); Carbon Dioxide 26.7 mmol/L (21.0-32.0); Chloride 105 mmol/L (98-107); Estimated GFR (African America >60 (>=60); Estimated GFR (Non-African Ame 55 (>=60); Globulin 4.7 g/dL; Glucose 129 mg/dL (74-106); Magnesium 1.6 mg/dL (1.8-2.4); PROCALCITONIN 0.14 ng/mL (0.00-0.50); Potassium 4.6 mmol/L (3.5-5.1); Sodium 137 mmol/L (136-145); Total Protein 6.7 g/dL (6.4-8.2)
[2024-01-04] MEDS: IMIPENEM/CILASTATIN SODIUM 1,000 MG in 0.9 % SODIUM CHLORIDE 100 ML 100 MG IV ×3 (06:08→22:18)
[2024-01-04] MEDS: MAGNESIUM SULFATE IN WATER 4 GM/100 ML PIGGYBACK IV (09:20)
[2024-01-04] MEDS: SACUBITRIL/VALSARTAN 24 MG-26 MG TABLET 1 TAB PO ×2 (09:21→21:04)
[2024-01-04] MEDS: FUROSEMIDE 20 MG TABLET PO (09:21)
[2024-01-04] MEDS: ASPIRIN 81 MG TABLET.DR PO (09:21)
[2024-01-04 11:04] LABS: Glucometer 152 mg/dL (74-106)
--- NOTE | 2024-01-04 12:02 | P.PN_ITS ---
<Statement entered by Rob Martin MD - 01/04/24 19:01> Patient seen and examined, agree with assessment and plan below. Patient improved overnight and much less erythema. Rash mostly resolved and faded. Cellulitis on leg improved and not as erythematous. Pain improved. Afebrile and normal WBC. Continue antibiotics and steroids. Diagnosis: 1. Cellulitis right leg 2. Dermatitis 3. DM2 4. HTN 5. Chronic HFrEF 6. Morbid obesity 7. CKD 3a Progress Note: Subjective Subjective Interval history: 01/04/24924 The patient is resting in bed sleeping at the time of my exam. He awakes easily to voice but quickly returns to sleep. Nursing notes that he did have narcotic pain medication earlier this morning which is causing his somnolence. He reports that his right lower extremity pain is improving and the rash is significantly improved. The area of cellulitis is mostly confined to the knee and below now, and the rash on his trunk is nearly resolved. R thigh rash persists but almost no cellulitis noted. No evidence of bullae or intradermal sheering is noted. We will continue with our current IV antibiotic and steroid plan for another 24 hours and consider discharge possibly tomorrow pending clinical course. Exam Narrative Exam Narrative: Itching/rash improving Constitutional Vital Signs, click to edit/add: Last Vital Signs Temp 97.6 F 01/04/24 07:48 Pulse 58 L 01/04/24 10:01 Resp 20 01/04/24 07:48 BP 100/56 01/04/24 07:48 Pulse Ox 95 01/04/24 11:38 O2 Del Method Room Air 01/04/24 11:38 Common normals: no apparent distress, oriented x3 and alert General appearance: cooperative Orientation/consciousness: Yes awake HENDC Common normals: normocephalic, head/scalp atraumatic and hearing grossly normal bilaterally Eye Common normals: PERRL, EOMs intact bilaterally, conjunctivae normal and no scleral icterus General eye: normal appearance of both eyes Chest Chest: symmetrical chest wall rise Other: Truncal rash nearly resolved Respiratory Common normals: normal respiratory effort, no use of accessory muscles and clear to auscultation bilaterally Cardio Common normals: regular rate, regular rhythm, S1 normal heart sound, S2 normal heart sound and peripheral pulses 2+ throughout Heart sounds: murmur (HSM 2/6) GI Common normals: Normal to inspection, nondistended, normoactive bowel sounds present, soft to palpation, non-tender and no hepatosplenomegaly Bladder/kidney exam: bladder normal to palpation Extremity General: no clubbing and no cyanosis Right lower extremity: upper leg (Cellulitic changes mostly resolved. Maculopapular rash persists, improving), lower leg (Cellulitic changes persist, improved swelling) and foot and digits (Peeling skin w/o bullae) Neuro Common normals: CN's II-XII intact bilaterally, moves all extremities, no focal motor deficits and no sensory deficits noted Psych Common normals: mental status grossly normal Progress Note: Objective Labs Labs: Short CBC 01/04/24 Range/Units 04:35 WBC 9.6 (4.0-11.0) 10^3/uL Hgb 12.3 L (14.0-18.0) g/dL Hct 36.7 L (42.0-54.0) % Plt Count 185 (150-450) 10^3/uL BMP 01/04/24 04:35 Sodium 137 Potassium 4.6 Chloride 105 Carbon Dioxide 26.7 BUN 25.0 H Creatinine 1.29 Glucose 129 H Calcium 8.7 Liver Function 01/04/24 Range/Units 04:35 Total Bilirubin 0.8 (0.2-1.0) mg/dL AST 57 H (15-37) U/L ALT 36 (16-63) U/L Alkaline Phosphatase 177 H (46-116) U/L Albumin 2.0 L (3.4-5.0) g/dL Progress Note: A&P Assessment and Plan (1) Cellulitis of right leg: Assessment and Plan: Acute * Improving * Approx 50% involvement of RLE * Continue IVPB Primaxin and Zyvox for broad gram neg and pos coverage * Avoid Zosyn/Vanco as both were use during prior admission w/ poor response * Avoid Levaquin & Doxy as adverse drug reaction is suspected after discharge on these medications * No drainage noted - unable to obtain cultures to further guide ABX choices * Saline lock IVF - pt eating and drinking well, BP stable, good urine output/renal fx * BC x 1 obtained in the ED - pending * BC x 2 from 12/16/23 admission neg x 5 days * Procalcitonin level resolving - 0.14 today * ESR/CRP improving * Pt afebrile w/o leukocytosis - low suspicion of sepsis at this time * Percocet previously administered for pain causing excessive somnolence. * Trial Tramadol for pain and monitor response. Avoid [id number] administration d/t concurrent administration of Zyvox (nursing aware) * Daily CBC, CMP, ESR, CRP (2) Skin rash: Assessment and Plan: Acute * Unclear etiology - suspect adverse drug reaction, but SJS remains within the differential (less likely) * Continue ABX regimen as noted above * Continue IVP solu-medrol 62.5 mg, reduce frequency to q8h * Benadryl PO PRN for itching * Monitor closely for development of bullae or intra-dermal detachment - none to date (3) Lactic acidosis: Assessment and Plan: Acute * Resolved (4) Hypomagnesemia: Assessment and Plan: Acute * Mild - 1.6 today after 2 gm Mag sulfate administered yesterday * Replete w/ 4 gm Mag sulfate IVPB * Repeat mag level in AM * Tele monitoring (5) CKD stage 3a, GFR 45-59 ml/min: Assessment and Plan: Chronic * Stable at baseline * IVF discontinued * CMP daily to monitor (6) HFrEF (heart failure with reduced ejection fraction): Assessment and Plan: Chronic * Appears clinically euvolemic * Daily weights, strict I&O * Continue home PO lasix, Entresto * Spouse reports Verquvo added by PCP just prior to hospitalization on 12/26/23 for LE edema - likely related to cellulitis. Hold Verquvo for now. (7) Type 2 diabetes mellitus: Assessment and Plan: Chronic * Continue to hold home metformin for now during acute infection/hospitalization * ACHS glucometer checks * Med CC diet * Med SSI for glucose correction Qualifiers: Diabetes mellitus intermodal customer service insulin use: without intermodal customer service use Diabetes mellitus complication status: with kidney complications Diabetes mellitus complication detail: with chronic kidney disease Chronic kidney disease stage: stage 3 (moderate) Chronic kidney disease stage 3 subtype: stage 3a (GFR 45-59) Qualified Code(s): E11.22 - Type 2 diabetes mellitus with diabetic chronic kidney disease; N18.31 - Chronic kidney disease, stage 3a (8) CONSTANCE (obstructive sleep apnea): Assessment and Plan: Chronic * OK to use home CPAP with sleep (9) Depression: Assessment and Plan: Chronic * Hold home SSRI d/t concurrent administration of Linezolid and concern for possible SJS (10) IBS (irritable bowel syndrome): Assessment and Plan: Chronic * Hold home Rifaximin used to treat frequent diarrhea in setting of clinical concern for possible SJS
--- NOTE | 2024-01-04 12:23 | CM.NOTE ---
01/04/24 10:[address] Martin. Discussed improvement in rash and cellulitis of leg and need for at least 1 more day of treatment. No discharge planned today.
--- NOTE | 2024-01-04 13:18 | SWNOTE1 ---
SW attempted 3x to review Important Message from Medicare form with pt. 2x pt was sleeping with cpap on, 3rd attempt pt needed to use restroom.
[2024-01-04] MEDS: LINEZOLID IN DEXTROSE 5% 600 MG/300 ML PIGGYBACK 300 MG IV ×2 (13:45→21:04)
[2024-01-04 16:03] LABS: Glucometer 168 mg/dL (74-106)
[2024-01-04] MEDS: TRAMADOL HCL 50 MG TABLET PO (18:12)
[2024-01-04] MEDS: DIPHENHYDRAMINE HCL 25 MG CAPSULE 50 MG PO (18:12)
[2024-01-04 19:51] LABS: Glucometer 148 mg/dL (74-106)
[2024-01-04] MEDS: ATORVASTATIN CALCIUM 40 MG TABLET PO (21:04)
[2024-01-05] VITALS (12 sets, daily range): BP systolic 92–117; BP diastolic 47–68; PULSE 62–82; TEMP 36.4–36.8; O2SAT 93–97
[2024-01-05] MEDS: METHYLPREDNISOLONE SOD SUCC PF 125 MG/2 ML VIAL 62.5 MG IVP (04:57)
[2024-01-05] MEDS: IMIPENEM/CILASTATIN SODIUM 1,000 MG in 0.9 % SODIUM CHLORIDE 100 ML 100 MG IV (05:01)
[2024-01-05 06:30] LABS: Hemoglobin 11.5 g/dL (14.0-18.0); Mean Corpuscular HGB Conc 33.8 g/dL (29.9-35.2); Mean Corpuscular Hemoglobin 34.5 pg (25.9-34.0); Mean Corpuscular Volume 102.1 fL (80.0-94.0); Mean Platelet Volume 11.7 fL (9.5-13.5); Platelet Count 207 10^3/uL (150-450); Red Blood Count 3.33 10^6/uL (4.70-6.10); Red Cell Distribution Width 14.5 % (11.0-15.0); White Blood Count 17.4 10^3/uL (4.0-11.0)
[2024-01-05 06:41] LABS: Erythrocyte Sedimentation Rate 102 mm/hr (<=20)
[2024-01-05 06:49] LABS: Band Neutrophils Absolute 0.2 10^3/uL (0.0-0.3); Lymphocytes Absolute Manual 0.34 10^3/uL (1.20-3.80); Monocytes Absolute Manual 0.52 10^3/uL (0.30-0.80); Segmented Neut Absolute Manual 16.35 10^3/uL (1.4-6.5)
[2024-01-05 07:01] LABS: Alanine Aminotransferase 34 U/L (16-63); Albumin Globulin Ratio 0.4; Albumin Level 1.9 g/dL (3.4-5.0); Alkaline Phosphatase 166 U/L (46-116); Anion Gap 12.3; Aspartate Amino Transferase 60 U/L (15-37); BUN Creatinine Ratio 26.6; Bilirubin Total 0.8 mg/dL (0.2-1.0); C Reactive Protein 6.05 mg/dL (<=0.50); Calcium 8.3 mg/dL (8.5-10.1); Carbon Dioxide 24.7 mmol/L (21.0-32.0); Chloride 105 mmol/L (98-107); Estimated GFR (African America >60 (>=60); Estimated GFR (Non-African Ame 58 (>=60); Globulin 4.4 g/dL; Glucose 139 mg/dL (74-106); Magnesium 2.1 mg/dL (1.8-2.4); Sodium 137 mmol/L (136-145); Total Protein 6.3 g/dL (6.4-8.2)
[2024-01-05] MEDS: TRAMADOL HCL 50 MG TABLET PO (08:42)
[2024-01-05] MEDS: FUROSEMIDE 20 MG TABLET PO (08:42)
[2024-01-05] MEDS: ASPIRIN 81 MG TABLET.DR PO (08:42)
[2024-01-05] MEDS: SACUBITRIL/VALSARTAN 24 MG-26 MG TABLET 1 TAB PO (08:42)
[2024-01-05] MEDS: 0.9 % SODIUM CHLORIDE 250 ML 10 ML IV (08:43)
[2024-01-05] MEDS: LINEZOLID IN DEXTROSE 5% 600 MG/300 ML PIGGYBACK 300 MG IV (08:43)
--- NOTE | 2024-01-05 10:28 | P.DS_ITS ---
<Statement entered by Rob Martin MD - 01/05/24 17:14> Patient seen and examined, agree with assessment and plan below. Presented with worsening cellulitis and rash. Responded well to steroids and antibiotics. WBC elevated likely related to steroids. Afebrile. Redness much improved. Mild swelling in leg. Discharged home in stable condition. Take medication as dir ected. Diagnosis: 1. Cellulitis right leg 2. Dermatitis 3. DM2 4. HTN 5. Chronic HFrEF 6. Morbid obesity 7. CKD 3a DS: Providers Provider Date of admission: 01/02/24 22:07 Primary care physician: BEHZAD RAHMAN DO Discharging clinician: Heather Garcia DS: Diagnosis Discharge Diagnosis (1) Cellulitis of right leg: (2) Dermatitis: (3) Lactic acidosis: (4) Hypomagnesemia: (5) CKD stage 3a, GFR 45-59 ml/min: (6) HFrEF (heart failure with reduced ejection fraction): (7) Type 2 diabetes mellitus: Qualifiers: Chronic kidney disease stage: stage 3 (moderate) Chronic kidney disease stage 3 subtype: stage 3a (GFR 45-59) Diabetes mellitus complication detail: with chronic kidney disease Diabetes mellitus complication status: with kidney complications Diabetes mellitus fpc insulin use: without watermelon harvesting supervisor use Qualified Code(s): E11.22 - Type 2 diabetes mellitus with diabetic chronic kidney disease; N18.31 - Chronic kidney disease, stage 3a (8) CONSTANCE (obstructive sleep apnea): (9) Depression: (10) IBS (irritable bowel syndrome): DS: Summary Hospital Course Hospital Course: The patient was admitted with resurgent right lower extremity cellulitis and an acute body wide rash of unclear etiology. He had just been discharged from this facility after a an inpatient stay for cellulitis of the same extremity that was difficult to manage with multiple antibiotics. He was readmitted after his cellulitis worsened and the rash developed. There was some concern for SJS, but adverse drug reaction was considered most likely based on the patient's clinical symptoms. He was treated with a new antibiotic regimen that included Primaxin and Zyvox IV. In addition he was given high-dose steroids to address his suspected drug reaction. He showed steady but slow clinical improvement over the course of his stay. The area of cellulitis has reduced by more than 50% since admission and the associated tenderness is also significantly improved. He does continue to have some rash on his upper right leg and minimal distribution on his trunk, but this is also improving significantly. He had mild hypokalemia that was repleted with Mag sulfate and mild dehydration that was treated with gentle IVFs. Leukocytosis noted on the day of discharge is suspected 2/2 to steroid administration rather than acute infectious process. As the patient is much improved, he is being discharged home in stable condition. He has been prescribed triple antibiotic therapy with cefdinir, oral Zyvox, and Flagyl to continue broad spectrum coverage of all possible pathogens. He was also prescribed Zofran for possible nausea associated with Flagyl administration and prednisone to continue to treat his inflammatory rash. The patient should follow-up with his PCP within 3 to 5 days. Time Spent with Patient Time attestation: Total time spent providing and/or coordinating discharge services: Time spent: greater than 30 minutes Specific discharge activities: Physical exam, discussion of discharge plan, questions answered. Exam Constitutional Vital Signs, click to edit/add: Last Vital Signs Temp 97.5 F L 01/05/24 07:59 Pulse 67 01/05/24 10:00 Resp 18 01/05/24 07:59 BP 111/63 01/05/24 07:59 Pulse Ox 97 01/05/24 07:59 O2 Del Method Room Air 01/05/24 07:59 Common normals: no apparent distress, oriented x3 and alert General appearance: cooperative Orientation/consciousness: Yes awake HENMT Common normals: normocephalic and head/scalp atraumatic Eye Common normals: PERRL, EOMs intact bilaterally, conjunctivae normal and no scleral icterus Neck & C-Spine Common normals: no JVD Respiratory Common normals: normal respiratory effort, no use of accessory muscles and clear to auscultation bilaterally Effort & inspection: able to speak in complete sentences and symmetric chest movement Cardio Common normals: no JVD, regular rate, regular rhythm, S1 normal heart sound, S2 normal heart sound, no murmurs and peripheral pulses 2+ throughout GI Common normals: Normal to inspection, nondistended, normoactive bowel sounds present, soft to palpation and non-tender Bladder/kidney exam: bladder normal to palpation Extremity Common normals: full ROM and normal capillary refill General: no clubbing and no cyanosis Right lower extremity: upper leg (Diffuse maculopapular, improving), lower leg (Improved erythema, calor, tenderness) and foot and digits (Dry, peeling ) Neuro Common normals: moves all extremities, no focal motor deficits and no sensory deficits noted Speech: speech normal Psych Common normals: mental status grossly normal and activity/motor behavior normal DS: Data Data Completed and Pending Labs on day of discharge: Labs from last 24 hours 01/05/24 01/04/24 01/04/24 06:00 19:50 16:02 WBC 17.4 H RBC 3.33 L Hgb 11.5 L Hct 34.0 L MCV 102.1 H MCH 34.5 H MCHC 33.8 RDW 14.5 Plt Count 207 MPV 11.7 Seg Neuts % (Manual) 94.0 Band Neutrophils % 1.0 Lymphocytes % (Manual) 2.0 L Monocytes % (Manual) 3.0 Eosinophils % (Manual) 0.0 L Basophils % (Manual) 0.0 L Neutrophils # (Manual) 16.35 H Band Neutrophils # 0.2 Lymphocytes # (Manual) 0.34 L Monocytes # (Manual) 0.52 Eosinophils # (Manual) 0.00 Basophils # (Manual) 0.00 ESR 102 H Sodium 137 Potassium 5.0 Chloride 105 Carbon Dioxide 24.7 Anion Gap 12.3 BUN 33.0 H Creatinine 1.24 Est GFR ( Amer) >60 Est GFR (Non-Af Amer) 58 L BUN/Creatinine Ratio 26.6 Glucose 139 H Calcium 8.3 L Magnesium 2.1 Total Bilirubin 0.8 AST 60 H ALT 34 Alkaline Phosphatase 166 H C-Reactive Protein 6.05 H Total Protein 6.3 L Albumin 1.9 L Globulin 4.4 Albumin/Globulin Ratio 0.4 POC Glucose 148 H 168 H 01/04/24 11:03 WBC RBC Hgb Hct MCV MCH MCHC RDW Plt Count MPV Seg Neuts % (Manual) Band Neutrophils % Lymphocytes % (Manual) Monocytes % (Manual) Eosinophils % (Manual) Basophils % (Manual) Neutrophils # (Manual) Band Neutrophils # Lymphocytes # (Manual) Monocytes # (Manual) Eosinophils # (Manual) Basophils # (Manual) ESR Sodium Potassium Chloride Carbon Dioxide Anion Gap BUN Creatinine Est GFR ( Amer) Est GFR (Non-Af Amer) BUN/Creatinine Ratio Glucose Calcium Magnesium Total Bilirubin AST ALT Alkaline Phosphatase C-Reactive Protein Total Protein Albumin Globulin Albumin/Globulin Ratio POC Glucose 152 H Preliminary micro results at discharge 01/02/24 18:14 Blood Culture Result 1 - Preliminary Blood NO GROWTH AT 36-48 HOURS. FINAL TO FOLLOW. 01/02/24 18:11 Blood Culture Result 1 - Preliminary Blood NO GROWTH AT 36-48 HOURS. FINAL TO FOLLOW. Discharge Plan Discharge Disposition: Home, Self-Care Condition: Good Discharge Medications: New metronidazole 500 mg tablet 500 mg PO Q8H 10 Days Qty: 30 0RF prednisone 10 mg tablet See Rx Instructions .ROUTE .COMPLEX 12 Days Qty: 42 0RF Rx Instructions: 6 tabs daily x 2 days, then 5 tabs daily x 2 days, then 4 tabs daily x 2 days, then 3 tabs daily x 2 days, then 2 tabs daily x 2 days, then 1 tab daily x 2 days, then STOP linezolid 600 mg tablet 600 mg PO Q12H 10 Days Qty: 20 0RF ondansetron HCl 4 mg tablet 4 mg PO Q8H PRN (Reason: nausea and vomiting) Qty: 30 0RF cefdinir 300 mg capsule 300 mg PO Q12H 10 Days Qty: 20 0RF Continued aspirin 81 mg capsule 81 mg PO DAILY celecoxib [Celebrex] 200 mg capsule 200 mg PO DAILY atorvastatin [Lipitor] 40 mg tablet 40 mg PO BEDTIME metformin 500 mg tablet 500 mg PO BIDWM Entresto 24-26 mg tablet 1 tab PO BID Xifaxan 550 mg tablet 550 mg PO BID cholecalciferol (vitamin D3) 1,250 mcg (50,000 unit) capsule 1,250 mcg PO QWEEK [place] 2.5 mg tablet 2.5 mg PO DAILY Rx Instructions: must administer with a meal/food furosemide [Lasix] 20 mg tablet 20 mg PO DAILY Qty: 30 0RF Held duloxetine 60 mg capsule,delayed release(DR/EC) 60 mg PO DAILY Hold Instructions: Hold until you have finished taking Zyvox (linezolid), then resume Discontinued doxycycline monohydrate 100 mg capsule 100 mg PO Q12H Rx Instructions: FILLED 12/23/23 X 15 DAYS levofloxacin 500 mg tablet 500 mg PO DAILY 10 Days Qty: 10 0RF Patient Comments: 12/31/23-01/10/24 Activity: increase activity as tolerated Diet: advance to your usual diet Print Language: Estonian Patient Instructions: Cellulitis (ED) Activity Restrictions/Additional Instructions: - Hold Cymbalta (duloxetine) until you have completed the full course of Zyvox (linezolid), then resume - Wear compression socks to reduce edema - Take Zofran (ondansetron) as needed for nausea caused by Flagyl (metronidazole). Take Flagyl with food to prevent nausea. Forms: Portal Instructions Follow Up Appointments: Dr Rahman's office will call you to schedule a follow up appointment. Please try to schedule in 3-5 days of discharge. [phone] Discharge Date/Time: 01/05/24 12:52
--- NOTE | 2024-01-05 10:51 | SWNOTE1 ---
SW stopped in to speak with pt. He is discharging today and is feeling better. SW reviewed Important Message from Medicare form with pt. He voiced he would like to wait until his comes before he signs. SW to check back around noon. Pt had to use restroom. Pt was in chair and stood up and alarm went off. Nursing came in. Pt was able to ambulate with cane to restroom. No needs identified at discharge.
[2024-01-05 11:10] LABS: Glucometer 120 mg/dL (74-106)
--- NOTE | 2024-01-05 11:51 | CM.NOTE ---
10:[address] Martin. [address]. Martin discussed lab results and also discharge plans with Javier. Plan is to discharged today on po antibiotics and steroid taper and need to followup with PCP in 1 week. Javier verbalized understanding.
--- NOTE | 2024-01-05 12:14 | SWNOTE1 ---
SW stopped back in and pt's still not here, he is going to call her. SW also provided pt with a [employer] to use for his new medication, Linezolid which could be expensive.
[2024-01-05] MEDS: METHYLPREDNISOLONE SOD SUCC PF 125 MG/2 ML VIAL 40 MG IVP (12:40)
--- NOTE | 2024-01-05 13:07 | SWNOTE1 ---
SW was able to speak to pt's in room prior to discharge. SW reviewed Important Message from Medicare reviewed and discussed with patient's . Pt's verbalized understanding and signed the form. Original given to patient's and copy placed in patient?s chart. SW also reviewed the [employer] card with pt's . She voiced she has another discount card and she will try both. No concerns about discharge.
--- NOTE | 2024-01-06 15:37 | CM.DCFOLLOWU ---
Person spoke with: patient's How are you feeling? well How is your pain? none Did you understand your discharge instructions? yes Do you have any questions about your discharge instructions? no Were you given any prescriptions at discharge? yes Were you able to get your prescriptions filled? yes Do you understand how to take your medications as ordered? yes, had questions in regards to water pill, but is going to ask PCP tomorrow Do you have any questions about your follow up appointment and do you plan to keep your follow up appointment? none, follow ups reviewed, will see PCP tomorrow Is there anything else that you would like to discuss? no Questions/Comments/Concerns/Other: no
== END 2024-01-05 12:52 | disposition home or self-care (01) | DRG 638 ==
LOC: ER 21:36 → MS 22:11
PROVIDERS: Nurse Practitioner; Physician Assistant; Registered Nurse; Admitting Provider Family Medicine; Emergency Provider Emergency Medicine; PCP Internal Medicine; Visit Provider Family Medicine
DX: E11.628 Type 2 diabetes mellitus with other skin complications (principal); E87.20 Acidosis, unspecified; I13.0 Hypertensive heart and chronic kidney disease with heart failure and stage 1 through stage 4 chronic kidney disease, or unspecified chronic kidney disease; L03.115 Cellulitis of right lower limb; I50.22 Chronic systolic (congestive) heart failure; Z68.43 Body mass index [BMI] 50.0-59.9, adult; E66.01 Morbid (severe) obesity due to excess calories; N18.31 Chronic kidney disease, stage 3a; E11.22 Type 2 diabetes mellitus with diabetic chronic kidney disease; F32.A Depression, unspecified; E78.5 Hyperlipidemia, unspecified; G47.33 Obstructive sleep apnea (adult) (pediatric); K58.9 Irritable bowel syndrome, unspecified; Z79.82 Long term (current) use of aspirin; Z79.84 Long term (current) use of oral hypoglycemic drugs; R21 Rash and other nonspecific skin eruption; E83.42 Hypomagnesemia; L30.9 Dermatitis, unspecified; E86.0 Dehydration; T36.95XA Adverse effect of unspecified systemic antibiotic, initial encounter; D72.829 Elevated white blood cell count, unspecified; T38.0X5A Adverse effect of glucocorticoids and synthetic analogues, initial encounter
CPT/HCPCS: 36415; 73700; 80053; 82800; 82948; 83605; 83735; 83880; 84145; 85007; 85025; 85027; 85610; 85652; 86140; 87040; 94761; 96365; 96366; 96367; 96368; 96372; 96375; 96376; 99285; J0743; J1170; J1650; J2020; J2405; J2543; J2919; J3370; J3475

== ENCOUNTER 2024-01-09 14:37 | Emergency (ER) | payer OTHER, SELFPAY ==
[2024-01-09] VITALS (81 sets, daily range): BP systolic 63–153; BP diastolic 27–78; PULSE 67–117; TEMP 36.3–36.7; O2SAT 94–100; BMI 53.1
--- NOTE | 2024-01-09 14:54 | ECG_ITS ---
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
--- NOTE | 2024-01-09 15:00 | CT_ITS ---
The [address] [address] Patient Name: CARA CERVANTES MRN: [id number] date: 1955 Sex: M Assigned Patient Location: ER Current Patient Location: ER Accession/Order Number: [id number] Exam Date: 01/09/2024 15:25 Report Date: 01/09/2024 16:33 At the request of: MITA MEDRANO Procedure: CT abdomen pelvis w con EXAM: CT abdomen pelvis w con HISTORY: GI bleed COMPARISON: None. TECHNIQUE: Multiple axial images of the abdomen and pelvis are obtained following the administration of IV contrast material. Coronal and sagittal reformatted sequences are submitted for review. FINDINGS: This is a limited examination due to patient body habitus and breathing/motion artifact. The visualized lung bases appear clear. Mild cardiomegaly is seen. Coronary arterial calcification is seen. Mild nodular liver liver surface is seen, which can be seen with cirrhotic changes. Small perihepatic ascites is seen. Mild pericholecystic fluid versus ascites is seen around the gallbladder. No calcified gallstone is visualized. If there is clinical concern for gallbladder disease, gallbladder ultrasound may be considered. The spleen, pancreas and bilateral adrenal glands appear unremarkable. 4 mm calculus is seen in the mid pole of the left kidney. Bilateral kidneys demonstrate normal contrast enhancement. There is no evidence for hydronephrosis bilaterally. Mild circumferential wall thickening of the urinary bladder is seen, suspicious for mild infectious/inflammatory process. Please correlate clinically. Nonobstructive bowel pattern is seen. The appendix is not identified. Mild wall thickening of the entire colon is seen, suggestive of mild colitis. Small ascites is seen in the abdomen, predominantly in the right upper and lower abdomen. Mild aortic and iliac arterial calcification is seen without aneurysmal dilatation. Small fat-containing bilateral inguinal hernia is seen. Mild degenerative changes of the visualized thoracolumbar spine is seen. CT/CT abdomen pelvis w con IMPRESSION: Mild wall thickening of the entire colon is seen, suggestive of mild colitis. Mild circumferential wall thickening of the urinary bladder is seen, suspicious for mild infectious/inflammatory process. Please correlate clinically. Mild nodular liver liver surface is seen, which can be seen with cirrhotic changes. Small perihepatic ascites is seen. Mild pericholecystic fluid versus ascites is seen around the gallbladder. No calcified gallstone is visualized. If there is clinical concern for gallbladder disease, gallbladder ultrasound may be considered. 4 mm nonobstructive left renal calculus. Limited examination due to patient body habitus and breathing/motion artifact. Electronically authenticated by: SHON CHRISTIANSEN Date: 01/09/2024 16:33
--- NOTE | 2024-01-09 15:02 | ED.GENADUL1 ---
HPI HPI - General Adult General Chief complaint: Abdominal Pain Stated complaint: DIZZINESS/GENERAL WEAKNESS Time Seen by Provider: 01/09/24 14:52 Source: patient Mode of arrival: ambulance Limitations: no limitations History of Present Illness HPI narrative: Patient is a 68-year-old male who returns to the emergency department for maroon-colored stools for the last 2 days associated with dizziness. Patient states he feels generally unwell. He has been admitted to this hospital twice this month for cellulitis of the right lower extremity. He states the cellulitis has improved. His medication last shows that he was instructed to stop Xarelto on 12/26/2023, however the patient is not entirely sure if he has been taking this or not. He is taking aspirin and Celebrex per the medication list. He states he believes he had a colonoscopy about 15 years ago related to an anal fissure. He denies abdominal pain, nausea, vomiting, fevers. He has not had a colonoscopy since his previous one 15 years ago, he denies urinary symptoms. Related Data Home Medications ?Medication ?Instructions ?Recorded ?Confirmed aspirin 81 mg capsule 81 mg PO DAILY 12/25/23 01/09/24 atorvastatin 40 mg tablet (Lipitor) 40 mg PO BEDTIME 12/25/23 01/09/24 celecoxib 200 mg capsule (Celebrex) 200 mg PO DAILY 12/25/23 01/09/24 cholecalciferol (vitamin D3) 1,250 1,250 mcg PO QWEEK 12/25/23 01/09/24 mcg (50,000 unit) capsule metformin 500 mg tablet 500 mg PO BIDWM 12/25/23 01/09/24 rifaximin 550 mg tablet (Xifaxan) 550 mg PO BID 12/25/23 01/09/24 sacubitril 24 mg-valsartan 26 mg 1 tab PO BID 12/25/23 01/09/24 tablet (Entresto) vericiguat 2.5 mg tablet (Verquvo) 2.5 mg PO DAILY 12/25/23 01/09/24 duloxetine 60 mg capsule,delayed 60 mg PO DAILY 12/26/23 01/09/24 release Previous Rx's ?Medication ?Instructions ?Recorded furosemide 20 mg tablet (Lasix) 20 mg PO DAILY #30 tabs 12/30/23 cefdinir 300 mg capsule 300 mg PO Q12H 10 days #20 caps 01/05/24 linezolid 600 mg tablet 600 mg PO Q12H 10 days #20 tabs 01/05/24 metronidazole 500 mg tablet 500 mg PO Q8H 10 days #30 tabs 01/05/24 ondansetron HCl 4 mg tablet 4 mg PO Q8H PRN nausea and 01/05/24 vomiting #30 tabs prednisone 10 mg tablet See Rx Instructions .Route 01/05/24 .COMPLEX 12 days #42 tabs Allergies Allergy/AdvReac Type Severity Reaction Status Date / Time No Known Drug Allergies Allergy Verified 01/02/24 17:39 Opioid HPI Opioid Management Most Recent Opioid Data: Last Pain Scale 3 01/05/24 11:11 Last Pain Intensity 4 12/29/23 10:37 Last Pain Assessment 01/05/24 12:26 Last ED Pain Assessment 01/09/24 15:10 Last ORT Total Score 0 01/02/24 22:10 Last ORT Risk Category Low Risk 01/02/24 22:10 Review of Systems ROS Constitutional Denies: fever or chills Ears, nose, mouth, and throat Denies: throat pain or nasal congestion Cardiovascular Denies: chest pain Respiratory Denies: shortness of breath Gastrointestinal Denies: abdominal pain, nausea or vomiting Musculoskeletal Denies: back pain Integumentary/Breast Denies: rash Neurological Denies: headache Hematologic/Lymphatic Denies: easy bruising or easy bleeding [facility] Medical History (Updated 01/09/24 @ 17:33 by DOROTHY Landrum) IBS (irritable bowel syndrome) ?K58.9 - Irritable bowel syndrome without diarrhea (ICD-10) Depression ?F32.A - Depression, unspecified (ICD-10) CKD stage 3a, GFR 45-59 ml/min ?N18.31 - Chronic kidney disease, stage 3a (ICD-10) Morbid obesity ?E66.01 - Morbid (severe) obesity due to excess calories (ICD-10) HFrEF (heart failure with reduced ejection fraction) ?I50.20 - Unspecified systolic (congestive) heart failure (ICD-10) HTN (hypertension) ?I10 - Essential (primary) hypertension (ICD-10) Type 2 diabetes mellitus ?E11.9 - Type 2 diabetes mellitus without complications (ICD-10) HLD (hyperlipidemia) ?E78.5 - Hyperlipidemia, unspecified (ICD-10) CONSTANCE (obstructive sleep apnea) ?G47.33 - Obstructive sleep apnea (adult) (pediatric) (ICD-10) CKD (chronic kidney disease) stage 3, GFR 30-59 ml/min ?N18.30 - Chronic kidney disease, stage 3 unspecified (ICD-10) Social History Within the past year, how often did you have a drink containing alcohol: never Score interpretation: A score less than 4 is consistent with normal alcohol consumption. Smoking status: Never smoker Non-prescribed substance use: denies use Previous occupational history: retired Highest level of school completed/degree received: high school graduate Are you now , , , , never or living with a partner: Little interest or pleasure in doing things: not at all Feeling down, depressed, or hopeless: not at all Feel stressed/tense/nervous/anxious/difficulty sleeping: not at all Do you think of yourself as: straight/heterosexual Gender Identity: male Exam Constitutional Vital Signs, click to edit/add: Last Vital Signs Temp 98.1 F 01/09/24 14:40 Pulse 73 01/09/24 17:00 Resp 18 01/09/24 17:00 BP 115/40 L 01/09/24 16:49 Pulse Ox 100 01/09/24 17:00 O2 Del Method Room Air 01/09/24 15:10 Course Vital Signs Vital signs: Vital Signs Temperature 98.1 F 01/09/24 14:40 Pulse Rate 76 01/09/24 14:40 Respiratory Rate 21 H 01/09/24 14:40 Pulse Oximetry 99 01/09/24 14:40 Oxygen Delivery Method Room Air 01/09/24 14:40 Temperature 98.1 F 01/09/24 14:40 Pulse Rate 73 01/09/24 17:00 Respiratory Rate 18 01/09/24 17:00 Blood Pressure 115/40 L 01/09/24 16:49 Pulse Oximetry 100 01/09/24 17:00 Oxygen Delivery Method Room Air 01/09/24 15:10 Medical Decision Making MDM Narrative Medical decision making narrative: On arrival to the emergency department, the patient was given IV fluids and Zofran. Laboratory studies reviewed and noted showing the patient has a hemoglobin of 7.8 and acute kidney injury with creatinine 3.64 and BUN 78. Potassium is elevated at 5.7. Patient with no EKG changes and no complaints of chest pain in the ER. He was sent for CT of the abdomen and pelvis with IV contrast to rule out ischemic bowel due to an elevated lactic acid of 10.8. This shows mild diffuse colitis of the abdomen and pelvis. I reviewed the patient's previous charts, he was given high-dose steroids and is currently on Flagyl so we will avoid additional intervention for the colitis at this time. A second IV was established for the patient, discussed with the patient and his significant other that he will not be appropriate for care at this facility and they request transfer to the [facility] system. [facility] hospitalist, Keven MCGARRY accepted the patient for admission to ICU to Dr. Mathur. Yissel given in the ER, 2000 units. We will speak with GI about the patient coming to [facility]. He is hemodynamically stable at this time although he does appear acutely ill, he will be sent to ICU for further evaluation and treatment. SUPERVISED APC VISIT, PHYSICIAN ATTESTATION: Based on the medical record the care appears appropriate. ? Critical care time 35 minutes Medical Records Medical records reviewed: Yes I reviewed the patient's medical records Lab Data Lab results reviewed: Yes I reviewed the patient's lab results Labs: Lab Results 01/09/24 Range/Units 14:46 WBC 15.9 H (4.0-11.0) 10^3/uL RBC 2.26 L (4.70-6.10) 10^6/uL Hgb 7.8 L (14.0-18.0) g/dL Hct 24.2 L (42.0-54.0) % MCV 107.1 H (80.0-94.0) fL MCH 34.5 H (25.9-34.0) pg MCHC 32.2 (29.9-35.2) g/dL RDW 15.4 H (11.0-15.0) % Plt Count 265 (150-450) 10^3/uL MPV 11.8 (9.5-13.5) fL Neut % (Auto) 78.9 H (43.0-75.0) % Lymph % (Auto) 12.2 L (20.5-60.0) % [place] % (Auto) 7.9 (1.7-12.0) % Eos % (Auto) 0.0 L (0.9-7.0) % Baso % (Auto) 0.1 L (0.2-2.0) % Neut # (Auto) 12.6 H (1.4-6.5) 10^3/uL Lymph # (Auto) 2.0 (1.2-3.8) 10^3/uL [place] # (Auto) 1.3 H (0.3-0.8) 10^3/uL Eos # (Auto) 0.0 (0.0-0.7) 10^3/uL Baso # (Auto) 0.0 (0.0-0.1) 10^3/uL Abs Immat Gran (auto) 0.15 H (0.00-0.03) 10^3/uL Imm/Tot Granulo (auto) 0.9 H (0.0-0.5) % PT 19.4 H (9.0-11.6) sec INR 1.96 Sodium 137 (136-145) mmol/L Potassium 5.7 H (3.5-5.1) mmol/L Chloride 104 (98-107) mmol/L Carbon Dioxide 16.6 L (21.0-32.0) mmol/L Anion Gap 22.1 BUN 78.0 H* (7.0-18.0) mg/dL Creatinine 3.64 H (0.70-1.30) mg/dL Est GFR ( Amer) 20 L (>=60) Est GFR (Non-Af Amer) 17 L (>=60) BUN/Creatinine Ratio 21.4 Glucose 134 H (74-106) mg/dL Lactate 10.8 H* (0.4-2.0) mmol/L Calcium 8.4 L (8.5-10.1) mg/dL Total Bilirubin 1.1 H (0.2-1.0) mg/dL AST 58 H (15-37) U/L ALT 58 (16-63) U/L Alkaline Phosphatase 105 (46-116) U/L Troponin I High Sens 97.7 H* (4.0-76.1) pg/mL Total Protein 5.0 L (6.4-8.2) g/dL Albumin 1.8 L (3.4-5.0) g/dL Globulin 3.2 g/dL Albumin/Globulin Ratio 0.6 Blood Type O Positive Antibody Screen Negative Imaging Data CT scan - abdomen: Attestation: I have reviewed the pertinent imaging results. Radiologist's impression: ITS Impressions Abdomen/Pelvis CT 01/09/24 15:00 IMPRESSION: Mild wall thickening of the entire colon is seen, suggestive of mild colitis. Mild circumferential wall thickening of the urinary bladder is seen, suspicious for mild infectious/inflammatory process. Please correlate clinically. Mild nodular liver liver surface is seen, which can be seen with cirrhotic changes. Small perihepatic ascites is seen. Mild pericholecystic fluid versus ascites is seen around the gallbladder. No calcified gallstone is visualized. If there is clinical concern for gallbladder disease, gallbladder ultrasound may be considered. 4 mm nonobstructive left renal calculus. Limited examination due to patient body habitus and breathing/motion artifact. Electronically authenticated by: SHON CHRISTIANSEN Date: 01/09/2024 16:33 ECG Data Attestation: I personally reviewed and interpreted this ECG as follows: (Sinus rhythm at a rate of 74, no acute ST elevation or ectopy. EKG reviewed by attending physician) Critical Care Time Critical Care Time Critical Care Time: Yes Total Critical Care Time: 35 Attestation: 35 minutes of critical care time for treatment of lower GI bleed, acute kidney injury and transfer to a higher level of care with administration of critical care med for reversal of anticoagulation Discharge Plan Discharge Chief Complaint: Abdominal Pain Clinical Impression: Acute gastrointestinal bleeding, Anemia, Acute kidney injury, Colitis Patient Disposition: [facility] Time of Disposition Decision: 17:32 Discharge location: [facility] Condition: Good Mode of Transportation: EMS Prescriptions / Home Meds: No Action aspirin 81 mg capsule 81 mg PO DAILY celecoxib [Celebrex] 200 mg capsule 200 mg PO DAILY atorvastatin [Lipitor] 40 mg tablet 40 mg PO BEDTIME metformin 500 mg tablet 500 mg PO BIDWM Entresto 24-26 mg tablet 1 tab PO BID Xifaxan 550 mg tablet 550 mg PO BID cholecalciferol (vitamin D3) 1,250 mcg (50,000 unit) capsule 1,250 mcg PO QWEEK Verquvo 2.5 mg tablet 2.5 mg PO DAILY Rx Instructions: must administer with a meal/food duloxetine 60 mg capsule,delayed release(DR/EC) 60 mg PO DAILY Hold Instructions: Hold until you have finished taking Zyvox (linezolid), then resume furosemide [Lasix] 20 mg tablet 20 mg PO DAILY Qty: 30 0RF metronidazole 500 mg tablet 500 mg PO Q8H 10 Days Qty: 30 0RF prednisone 10 mg tablet See Rx Instructions .ROUTE .COMPLEX 12 Days Qty: 42 0RF Rx Instructions: 6 tabs daily x 2 days, then 5 tabs daily x 2 days, then 4 tabs daily x 2 days, then 3 tabs daily x 2 days, then 2 tabs daily x 2 days, then 1 tab daily x 2 days, then STOP linezolid 600 mg tablet 600 mg PO Q12H 10 Days Qty: 20 0RF ondansetron HCl 4 mg tablet 4 mg PO Q8H PRN (Reason: nausea and vomiting) Qty: 30 0RF cefdinir 300 mg capsule 300 mg PO Q12H 10 Days Qty: 20 0RF Print Language: Belgian Referrals: BEHZAD RAHMAN DO [Primary Care Provider] - 1 week
[2024-01-09 15:10] LABS: Basophils Percent Auto 0.1 % (0.2-2.0); Hematocrit 24.2 % (42.0-54.0); Hemoglobin 7.8 g/dL (14.0-18.0); Immature Granulocytes Abs Auto 0.15 10^3/uL (0.00-0.03); Immature Granulocytes Pct Auto 0.9 % (0.0-0.5); Lymphocytes Percent Auto 12.2 % (20.5-60.0); Mean Corpuscular HGB Conc 32.2 g/dL (29.9-35.2); Mean Corpuscular Hemoglobin 34.5 pg (25.9-34.0); Mean Platelet Volume 11.8 fL (9.5-13.5); Monocytes Absolute Auto 1.3 10^3/uL (0.3-0.8); Monocytes Percent Auto 7.9 % (1.7-12.0); Neutrophils Absolute Auto 12.6 10^3/uL (1.4-6.5); Neutrophils Percent Auto 78.9 % (43.0-75.0); Platelet Count 265 10^3/uL (150-450); Red Blood Count 2.26 10^6/uL (4.70-6.10); Red Cell Distribution Width 15.4 % (11.0-15.0); White Blood Count 15.9 10^3/uL (4.0-11.0)
[2024-01-09 15:18] LABS: INR 1.96; Prothrombin Time 19.4 sec (9.0-11.6)
[2024-01-09 15:23] LABS: Alanine Aminotransferase 58 U/L (16-63); Albumin Globulin Ratio 0.6; Albumin Level 1.8 g/dL (3.4-5.0); Alkaline Phosphatase 105 U/L (46-116); Anion Gap 22.1; Aspartate Amino Transferase 58 U/L (15-37); BUN Creatinine Ratio 21.4; Bilirubin Total 1.1 mg/dL (0.2-1.0); Calcium 8.4 mg/dL (8.5-10.1); Carbon Dioxide 16.6 mmol/L (21.0-32.0); Chloride 104 mmol/L (98-107); Estimated GFR (African America 20 (>=60); Estimated GFR (Non-African Ame 17 (>=60); Globulin 3.2 g/dL; Glucose 134 mg/dL (74-106); Potassium 5.7 mmol/L (3.5-5.1); Sodium 137 mmol/L (136-145)
[2024-01-09 15:28] LABS: Lactate/Lactic Acid 10.8 mmol/L (0.4-2.0); Troponin I High Sensitivity 97.7 pg/mL (4.0-76.1)
[2024-01-09 15:39] LABS: Mean Corpuscular Volume 107.1 fL (80.0-94.0)
[2024-01-09] MEDS: 0.9 % SODIUM CHLORIDE 1,000 ML 999 ML IV (15:48)
[2024-01-09] MEDS: ONDANSETRON PF 4 MG/2 ML VIAL IV (15:48)
[2024-01-09] MEDS: HUM PROTHROMBIN CPLX(PCC)4FACT 2,000 UNIT in EMPTY BAG 80 ML 8.4 UNIT IV (17:26)
[2024-01-09] MEDS: PANTOPRAZOLE SODIUM 40 MG VIAL IV (18:14)
[2024-01-09 18:18] LABS: Lactate/Lactic Acid 8.5 mmol/L (0.4-2.0)
[2024-01-09 19:12] LABS: Troponin I High Sensitivity 126.3 pg/mL (4.0-76.1)
[2024-01-09] MEDS: 0.9 % SODIUM CHLORIDE 500 ML IV (20:25)
== END 2024-01-09 22:30 | disposition short-term general hospital (02) ==
PROVIDERS: Physician Assistant; Emergency Provider Emergency Medicine; PCP Internal Medicine
DX: K52.9 Noninfective gastroenteritis and colitis, unspecified (principal); D64.9 Anemia, unspecified; N17.9 Acute kidney failure, unspecified; Z79.82 Long term (current) use of aspirin; Z79.899 Other long term (current) drug therapy
CPT/HCPCS: 36415; 36430; 74177; 80053; 83605; 84484; 85025; 85610; 86850; 86900; 86901; 93005; 96361; 96365; 96375; 99285; J2405; J7168; P9016; Q9967